=== PATIENT | female | born 1955 | race Caucasian/White ===

== ENCOUNTER 2017-07-28 19:52 | Inpatient (IN) | payer OTHER ==
[~2017-07-28] VITALS: Ht 157.5 cm; Wt 59.0 kg
[~2017-07-28 19:52] MED LIST: ADV250/50 INH; AMLODIPINE BESYL5 M1 PO; ASPIR LOW81 MG PO; AZITHROMYCIN250 M1 PO; BENADRYL ALLERG25 MG PO; BP MEDICATION; CLA10 PO; DIPHENHYDRAMINE50 M2 PO; HYDROCHLOROTH12.5 M2 PO; KEFLEX500 MG PO; LAC PO; LIPITOR20 MG PO; MEDDP PO; METFORMIN HCL500 MG PO; NOR10T PO; NOR5 PO; PRE20 PO; PREDNISONE1 MG PO; PROAIR HFA0.09 MG/A1 IH; PROAIR INH; PROS INH; PROVENTIL0.09 MG/A1; QVAR0.08 MG/Ac IH; SIMVASTATIN1 POW; SINGULAIR10 MG PO; VENTOLIN H0.09 MG/A1 INH; VIC PO; ZIT250 PO; ZITHROMAX250 MG PO
[2017-07-28 21:26] LABS: RED CELL DISTRIBUTION WIDTH 13.5 % (11.5-14.5)
[2017-07-28 21:30] LABS: BASOPHIL % 0.6 % (0-2)
[2017-07-28 21:32] LABS: PLATELET COUNT 408 x10^3mcL (130-400)
[2017-07-28 21:40] LABS: CALCIUM 9.3 mg/dL (8.5-10.1); CARBON DIOXIDE 34.3 mmol/L (21-32); CHLORIDE SERUM 95 mmol/L (98-107); CREATININE SERUM 0.6 mg/dL (0.6-1.0); GFR1 > 60 mL/min; GLUCOSE SERUM 99 mg/dL (74-106); POTASSIUM SERUM 3.8 mmol/L (3.5-5.1); SODIUM SERUM 131 mmol/L (136-145)
[2017-07-28 21:43] LABS: ALBUMIN 3.7 g/dL (3.4-5.0); ALKALINE PHOSPHATASE 100 U/L (46-116); ALT/SGPT 25 U/L (14-59); AST/SGOT 14 U/L (15-37); BILIRUBIN TOTAL 0.51 mg/dL (0.20-1.00); MAGNESIUM 2.2 mg/dL (1.8-2.4); TOTAL PROTEIN, SERUM 7.5 g/dL (6.4-8.2)
[2017-07-28 22:40] LABS: CK-MB 1.7 ng/mL (0-3.6)
[2017-07-29] VITALS (7 sets, daily range): BP systolic 125–140; BP diastolic 54–67
[2017-07-29 00:42] LABS: microscopic required? NO
[2017-07-29 01:01] LABS: UA SPECIFIC GRAVITY 1.015 (1.005-1.035); urine erythrocyte NEGATIVE (NEGATIVE)
[2017-07-29 01:04] LABS: T3 TOTAL 0.92 ng/mL
[2017-07-29 01:15] LABS: AMPHETAMINE QUAL UR NONE DETECTED (NEG <=1000)
[2017-07-29 01:52] LABS: FREE T4 1.18 ng/dL (0.76-1.46); FREE THYROXINE INDEX 3.7 ug/dL (1.4-4.5); T4(THYROXINE) 10.2 ug/dL (4.7-13.3)
[2017-07-29 04:34] LABS: BASOPHIL % 0.1 % (0-2); PLATELET COUNT 358 x10^3mcL (130-400); RED CELL DISTRIBUTION WIDTH 13.6 % (11.5-14.5)
[2017-07-29 04:43] LABS: CALCIUM 8.9 mg/dL (8.5-10.1); CHLORIDE SERUM 96 mmol/L (98-107); CREATININE SERUM 0.7 mg/dL (0.6-1.0); GFR1 > 60 mL/min; GLUCOSE SERUM 165 mg/dL (74-106); POTASSIUM SERUM 3.9 mmol/L (3.5-5.1); SODIUM SERUM 135 mmol/L (136-145)
[2017-07-30 06:24] VITALS: BP 148/66
[2017-07-30 07:15] LABS: BASOPHIL % 0.1 % (0-2); PLATELET COUNT 348 x10^3mcL (130-400); RED CELL DISTRIBUTION WIDTH 13.6 % (11.5-14.5)
[2017-07-30 07:28] LABS: CALCIUM 8.7 mg/dL (8.5-10.1); CARBON DIOXIDE 30.7 mmol/L (21-32); CHLORIDE SERUM 98 mmol/L (98-107); CREATININE SERUM 0.6 mg/dL (0.6-1.0); GFR1 > 60 mL/min; GLUCOSE SERUM 180 mg/dL (74-106); POTASSIUM SERUM 4.4 mmol/L (3.5-5.1); SODIUM SERUM 135 mmol/L (136-145)
[2017-07-30 09:30] VITALS: BP 139/57
[2017-07-30 13:13] VITALS: BP 146/66
[2017-07-30] MEDS ORDERED: ZITHROMAX250 MG PO (16:03)
[2017-07-30] MEDS ORDERED: LAC PO (16:16)
[2017-07-30] MEDS ORDERED: MEDDP PO ×2 (16:16→16:51)
[2017-07-30] MEDS ORDERED: ALBUTEROL SULFAT3 M3 IH (16:16)
[2017-07-30 16:32] VITALS: BP 146/66
[2017-07-30 16:38] VITALS: BP 143/65
[2017-07-30] MEDS ORDERED: ZITHROMAX1 GM/Packe PO (16:53)
== END 2017-07-30 18:32 | disposition home or self-care (01) | DRG 140 ==
LOC: ED 19:52 → DU 23:50
PROVIDERS: Emergency Medicine; ADMIT Family Medicine
DX: J44.1 Chronic obstructive pulmonary disease with (acute) exacerbation (principal); D68.69 Other thrombophilia; R65.10 Systemic inflammatory response syndrome (SIRS) of non-infectious origin without acute organ dysfunction; E11.65 Type 2 diabetes mellitus with hyperglycemia; Z99.81 Dependence on supplemental oxygen; I10 Essential (primary) hypertension; Z79.82 Long term (current) use of aspirin; M54.40 Lumbago with sciatica, unspecified side; L57.0 Actinic keratosis; Z68.23 Body mass index [BMI] 23.0-23.9, adult; Z79.84 Long term (current) use of oral hypoglycemic drugs; Z86.718 Personal history of other venous thrombosis and embolism; Z88.0 Allergy status to penicillin; Z88.2 Allergy status to sulfonamides; Z88.8 Allergy status to other drugs, medicaments and biological substances
CPT/HCPCS: 36600; 82962; 83880; 84439; 85378; J0696; J1644; J2270; J2920; J2930; J3475; J3490; J7030; J7613; J7620; J7644; Q0092

== ENCOUNTER 2017-10-27 17:14 | Inpatient (IN) | payer OTHER ==
[~2017-10-27] VITALS: Ht 160 cm; Wt 60.5 kg
[~2017-10-27 17:14] MED LIST changes: +ALBUTEROL SULFAT3 M3 IH; +ZITHROMAX1 GM/Packe PO
[2017-10-27 17:16] VITALS: Ht 160 cm; Wt 60.5 kg
[2017-10-27 19:10] LABS: BASOPHIL % 0.7 % (0-2); PLATELET COUNT 451 x10^3mcL (130-400); RED CELL DISTRIBUTION WIDTH 13.1 % (11.5-14.5)
[2017-10-27 19:13] LABS: CALCIUM 9.1 mg/dL (8.5-10.1); CARBON DIOXIDE 30.9 mmol/L (21-32); CHLORIDE SERUM 91 mmol/L (98-107); CREATININE SERUM 0.5 mg/dL (0.6-1.0); GFR1 > 60 mL/min; GLUCOSE SERUM 100 mg/dL (74-106); POTASSIUM SERUM 3.8 mmol/L (3.5-5.1); SODIUM SERUM 129 mmol/L (136-145)
[2017-10-27 19:19] LABS: ALBUMIN 3.5 g/dL (3.4-5.0); ALKALINE PHOSPHATASE 86 U/L (46-116); ALT/SGPT 27 U/L (14-59); AST/SGOT 16 U/L (15-37); BILIRUBIN TOTAL 0.53 mg/dL (0.20-1.00); TOTAL PROTEIN, SERUM 6.8 g/dL (6.4-8.2)
[2017-10-27 19:59] LABS: T3 TOTAL 1.05 ng/mL
[2017-10-27 20:01] LABS: CHOLESTEROL/HDL RATIO 3.2; PHOSPHOROUS 3.7 mg/dL (2.5-4.9)
[2017-10-27 20:05] LABS: FREE T4 1.15 ng/dL (0.76-1.46); FREE THYROXINE INDEX 3.1 ug/dL (1.4-4.5)
[2017-10-27 20:33] VITALS: BP 111/61
[2017-10-27 21:25] VITALS: BP 111/62
[2017-10-28 01:00] LABS: OSMOLALITY SERUM 283 mOsm/kg (278-298)
[2017-10-28 01:04] LABS: CALCIUM 8.5 mg/dL (8.5-10.1); CARBON DIOXIDE 31.8 mmol/L (21-32); CHLORIDE SERUM 93 mmol/L (98-107); CREATININE SERUM 0.7 mg/dL (0.6-1.0); GFR1 > 60 mL/min; GLUCOSE SERUM 275 mg/dL (74-106); POTASSIUM SERUM 4.2 mmol/L (3.5-5.1); SODIUM SERUM 132 mmol/L (136-145)
[2017-10-28 02:16] LABS: microscopic required? YES; urine erythrocyte NEGATIVE (NEGATIVE)
[2017-10-28 02:24] LABS: AMPHETAMINE QUAL UR NONE DETECTED (NEG <=1000)
[2017-10-28 05:47] VITALS: BP 123/68
[2017-10-28 07:21] LABS: BASOPHIL % 0.2 % (0-2); RED CELL DISTRIBUTION WIDTH 13.1 % (11.5-14.5)
[2017-10-28 07:25] LABS: PLATELET COUNT 417 x10^3mcL (130-400)
[2017-10-28 07:57] LABS: CALCIUM 8.7 mg/dL (8.5-10.1); CARBON DIOXIDE 27.2 mmol/L (21-32); CHLORIDE SERUM 94 mmol/L (98-107); CREATININE SERUM 0.5 mg/dL (0.6-1.0); GFR1 > 60 mL/min; GLUCOSE SERUM 193 mg/dL (74-106); PHOSPHOROUS 3.6 mg/dL (2.5-4.9); POTASSIUM SERUM 4.5 mmol/L (3.5-5.1); SODIUM SERUM 129 mmol/L (136-145)
[2017-10-28 09:42] VITALS: BP 154/68
[2017-10-28 14:53] VITALS: BP 114/43
[2017-10-28 16:40] VITALS: BP 113/53
[2017-10-28 21:02] LABS: CALCIUM 8.9 mg/dL (8.5-10.1); CARBON DIOXIDE 31.1 mmol/L (21-32); CHLORIDE SERUM 95 mmol/L (98-107); CREATININE SERUM 0.7 mg/dL (0.6-1.0); GFR1 > 60 mL/min; GLUCOSE SERUM 218 mg/dL (74-106); POTASSIUM SERUM 4.5 mmol/L (3.5-5.1); SODIUM SERUM 132 mmol/L (136-145)
[2017-10-28 22:08] VITALS: BP 112/48
[2017-10-29 05:57] VITALS: BP 115/42
[2017-10-29 10:15] VITALS: BP 127/52
[2017-10-29 10:53] VITALS: BP 127/52
[2017-10-29] MEDS ORDERED: ZITHROMAX1 GM/Packe PO (15:43)
[2017-10-29] MEDS ORDERED: MEDDP PO (15:44)
[2017-10-29] MEDS ORDERED: NOR10T PO (15:51)
[2017-10-29 16:03] LABS: CHLORIDE SERUM 96 mmol/L (98-107); CREATININE SERUM 0.8 mg/dL (0.6-1.0); GFR1 > 60 mL/min; GLUCOSE SERUM 167 mg/dL (74-106); PHOSPHOROUS 2.5 mg/dL (2.5-4.9); POTASSIUM SERUM 4.3 mmol/L (3.5-5.1); SODIUM SERUM 133 mmol/L (136-145)
[2017-10-29 16:16] LABS: RED CELL DISTRIBUTION WIDTH 13.3 % (11.5-14.5)
[2017-10-29 16:20] LABS: PLATELET COUNT 405 x10^3mcL (130-400)
[2017-10-29 16:53] LABS: BAND NEUTROPHIL 1 % (0-10); BASOPHIL 0 % (0-2); MONOCYTE 4 % (0-7); SEGMENTED NEUTROPHILS 88 % (37-75)
[2017-10-29 16:57] LABS: PLATELET MORPHOLOGY PLATELETS INCREASED; rbc morphology (normal/abnorm) NORMAL (NORMAL)
== END 2017-10-29 17:22 | disposition home or self-care (01) | DRG 140 ==
LOC: ED 17:14 → DU 18:55
PROVIDERS: Emergency Medicine; Family Medicine
DX: J44.1 Chronic obstructive pulmonary disease with (acute) exacerbation (principal); N17.0 Acute kidney failure with tubular necrosis; D68.69 Other thrombophilia; E11.51 Type 2 diabetes mellitus with diabetic peripheral angiopathy without gangrene; R65.10 Systemic inflammatory response syndrome (SIRS) of non-infectious origin without acute organ dysfunction; E87.1 Hypo-osmolality and hyponatremia; E87.8 Other disorders of electrolyte and fluid balance, not elsewhere classified; Z99.81 Dependence on supplemental oxygen; I10 Essential (primary) hypertension; E78.5 Hyperlipidemia, unspecified; I25.2 Old myocardial infarction; Z79.82 Long term (current) use of aspirin; Z87.891 Personal history of nicotine dependence; Z79.84 Long term (current) use of oral hypoglycemic drugs; Z88.0 Allergy status to penicillin; Z88.2 Allergy status to sulfonamides; Z88.8 Allergy status to other drugs, medicaments and biological substances; Z98.51 Tubal ligation status; G89.29 Other chronic pain; M54.9 Dorsalgia, unspecified; Z82.49 Family history of ischemic heart disease and other diseases of the circulatory system; Z80.9 Family history of malignant neoplasm, unspecified
CPT/HCPCS: 36600; 82962; 83880; 84439; 87804; 94150; J0456; J0696; J2920; J2930; J3490; J7030; J7050; J7620; Q0092

== ENCOUNTER 2018-01-30 17:51 | Inpatient (IN) | payer OTHER ==
[~2018-01-30] VITALS: Ht 160 cm; Wt 63.1 kg
[2018-01-30 18:11] VITALS: Ht 160 cm; Wt 63.1 kg
[2018-01-30 19:07] LABS: BASOPHIL % 0.7 % (0-2); PLATELET COUNT 363 x10^3mcL (130-400); RED CELL DISTRIBUTION WIDTH 13.2 % (11.5-14.5)
[2018-01-30 19:19] LABS: ALBUMIN 3.7 g/dL (3.4-5.0); ALKALINE PHOSPHATASE 96 U/L (46-116); ALT/SGPT 18 U/L (14-59); AST/SGOT 12 U/L (15-37); BILIRUBIN TOTAL 0.7 mg/dL (0.20-1.00); CALCIUM 8.5 mg/dL (8.5-10.1); CARBON DIOXIDE 34.2 mmol/L (21-32); CHLORIDE SERUM 89 mmol/L (98-107); CREATININE SERUM 0.4 mg/dL (0.6-1.0); GFR1 > 60 mL/min; GLUCOSE SERUM 119 mg/dL (74-106); POTASSIUM SERUM 3.2 mmol/L (3.5-5.1); TOTAL PROTEIN, SERUM 6.7 g/dL (6.4-8.2)
[2018-01-30 19:25] LABS: SODIUM SERUM 124 mmol/L (136-145)
[2018-01-30 20:28] VITALS: BP 156/64
[2018-01-30 20:56] VITALS: BP 156/64
[2018-01-30 20:58] LABS: T3 TOTAL 1.05 ng/mL
[2018-01-30 21:00] LABS: MAGNESIUM 1.9 mg/dL (1.8-2.4); PHOSPHOROUS 3.7 mg/dL (2.5-4.9)
[2018-01-30 21:01] LABS: CHOLESTEROL/HDL RATIO 2.5
[2018-01-30 21:07] LABS: FREE T4 1.46 ng/dL (0.76-1.46); FREE THYROXINE INDEX 3.9 ug/dL (1.4-4.5); T4(THYROXINE) 10.7 ug/dL (4.7-13.3)
[2018-01-31 03:08] LABS: microscopic required? YES; urine erythrocyte NEGATIVE (NEGATIVE)
[2018-01-31 03:17] LABS: AMPHETAMINE QUAL UR NONE DETECTED (NEG <=1000)
[2018-01-31 05:51] VITALS: BP 121/55
[2018-01-31 08:07] LABS: BASOPHIL % 0.4 % (0-2); PLATELET COUNT 354 x10^3mcL (130-400); RED CELL DISTRIBUTION WIDTH 13.5 % (11.5-14.5)
[2018-01-31 08:21] LABS: CALCIUM 9.3 mg/dL (8.5-10.1); CARBON DIOXIDE 30.6 mmol/L (21-32); CHLORIDE SERUM 89 mmol/L (98-107); CREATININE SERUM 0.6 mg/dL (0.6-1.0); GFR1 > 60 mL/min; GLUCOSE SERUM 128 mg/dL (74-106); MAGNESIUM 1.9 mg/dL (1.8-2.4); PHOSPHOROUS 3.5 mg/dL (2.5-4.9); POTASSIUM SERUM 4.7 mmol/L (3.5-5.1); SODIUM SERUM 129 mmol/L (136-145)
[2018-01-31 09:07] VITALS: BP 131/62
[2018-01-31 13:51] VITALS: BP 127/66
[2018-01-31 17:07] VITALS: BP 139/62
[2018-01-31 19:25] VITALS: BP 125/42
[2018-01-31 21:31] VITALS: BP 124/50
[2018-02-01 06:15] LABS: PLATELET COUNT 373 x10^3mcL (130-400); RED CELL DISTRIBUTION WIDTH 13.8 % (11.5-14.5)
[2018-02-01 06:18] VITALS: BP 149/71
[2018-02-01] MEDS ORDERED: LISINOPRIL10 MG PO (06:23)
[2018-02-01] MEDS ORDERED: KEFLEX500 M1 PO (06:24)
[2018-02-01] MEDS ORDERED: MEDDP PO (06:25)
[2018-02-01] MEDS ORDERED: LAC PO (06:25)
[2018-02-01 06:45] LABS: CALCIUM 8.6 mg/dL (8.5-10.1); CARBON DIOXIDE 29.5 mmol/L (21-32); CHLORIDE SERUM 96 mmol/L (98-107); CREATININE SERUM 0.5 mg/dL (0.6-1.0); GFR1 > 60 mL/min; GLUCOSE SERUM 146 mg/dL (74-106); PHOSPHOROUS 3.1 mg/dL (2.5-4.9); POTASSIUM SERUM 4.5 mmol/L (3.5-5.1); SODIUM SERUM 134 mmol/L (136-145)
[2018-02-01] MEDS ORDERED: BLOOD GLUCOSE MC (08:00)
[2018-02-01 09:10] LABS: BAND NEUTROPHIL 2 % (0-10); BASOPHIL 0 % (0-2); MONOCYTE 2 % (0-7); SEGMENTED NEUTROPHILS 92 % (37-75)
[2018-02-01 11:01] VITALS: BP 132/53
== END 2018-02-01 11:44 | disposition home or self-care (01) | DRG 140 ==
LOC: ED 17:51 → DU 19:11
PROVIDERS: Emergency Medicine; Family Medicine
DX: J44.1 Chronic obstructive pulmonary disease with (acute) exacerbation (principal); N17.0 Acute kidney failure with tubular necrosis; E87.1 Hypo-osmolality and hyponatremia; E87.8 Other disorders of electrolyte and fluid balance, not elsewhere classified; I10 Essential (primary) hypertension; E11.9 Type 2 diabetes mellitus without complications; E78.5 Hyperlipidemia, unspecified; Z79.82 Long term (current) use of aspirin; Z88.0 Allergy status to penicillin; Z88.2 Allergy status to sulfonamides; Z88.8 Allergy status to other drugs, medicaments and biological substances; Z83.3 Family history of diabetes mellitus; Z82.49 Family history of ischemic heart disease and other diseases of the circulatory system; Z82.3 Family history of stroke; Z80.9 Family history of malignant neoplasm, unspecified; F17.210 Nicotine dependence, cigarettes, uncomplicated; G89.29 Other chronic pain; M54.9 Dorsalgia, unspecified; M41.9 Scoliosis, unspecified
CPT/HCPCS: 36600; 82962; 83880; 84439; 87804; J0696; J1885; J2920; J2930; J7030; J7620; Q0092

== ENCOUNTER 2018-03-25 16:52 | Inpatient (IN) | payer OTHER ==
[~2018-03-25] VITALS: Ht 160 cm; Wt 55.4 kg
[~2018-03-25 16:52] MED LIST changes: +BLOOD GLUCOSE MC; +KEFLEX500 M1 PO; +LISINOPRIL10 MG PO
[2018-03-25 16:55] VITALS: Ht 160 cm; Wt 55.4 kg
[2018-03-25 17:54] LABS: BASOPHIL % 0.4 % (0-2); RED CELL DISTRIBUTION WIDTH 13.1 % (11.5-14.5)
[2018-03-25 17:59] LABS: PLATELET COUNT 529 x10^3mcL (130-400)
[2018-03-25 18:06] LABS: CALCIUM 9.1 mg/dL (8.5-10.1); CARBON DIOXIDE 31.7 mmol/L (21-32); CHLORIDE SERUM 88 mmol/L (98-107); CREATININE SERUM 0.6 mg/dL (0.6-1.0); GFR1 > 60 mL/min; GLUCOSE SERUM 120 mg/dL (74-106); POTASSIUM SERUM 4.3 mmol/L (3.5-5.1); SODIUM SERUM 126 mmol/L (136-145)
[2018-03-25 18:13] LABS: ALBUMIN 3.4 g/dL (3.4-5.0); ALKALINE PHOSPHATASE 118 U/L (46-116); ALT/SGPT 14 U/L (14-59); AST/SGOT 13 U/L (15-37); BILIRUBIN TOTAL 0.62 mg/dL (0.20-1.00); TOTAL PROTEIN, SERUM 7.5 g/dL (6.4-8.2)
[2018-03-25 18:30] LABS: CK-MB 0.6 ng/mL (0-3.6)
[2018-03-25 20:08] LABS: T3 TOTAL 1.15 ng/mL
[2018-03-25 20:09] LABS: CHOLESTEROL/HDL RATIO 2.9; PHOSPHOROUS 3.8 mg/dL (2.5-4.9)
[2018-03-25 20:17] VITALS: BP 125/52
[2018-03-25 20:29] LABS: FREE T4 1.39 ng/dL (0.76-1.46); FREE THYROXINE INDEX 4.1 ug/dL (1.4-4.5); T4(THYROXINE) 11.3 ug/dL (4.7-13.3)
[2018-03-25 20:48] VITALS: BP 125/52
[2018-03-25] MEDS ORDERED: ALDACTONE25 MG PO (21:44)
[2018-03-25] MEDS ORDERED: ALPRAZOLAM XR1 MG PO (21:46)
[2018-03-26 00:58] LABS: CALCIUM 8.7 mg/dL (8.5-10.1); CARBON DIOXIDE 25.7 mmol/L (21-32); CHLORIDE SERUM 87 mmol/L (98-107); CREATININE SERUM 0.9 mg/dL (0.6-1.0); GFR1 > 60 mL/min; GLUCOSE SERUM 191 mg/dL (74-106); POTASSIUM SERUM 4.4 mmol/L (3.5-5.1)
[2018-03-26 01:02] LABS: SODIUM SERUM 124 mmol/L (136-145)
[2018-03-26 06:06] VITALS: BP 117/61
[2018-03-26 06:56] LABS: RED CELL DISTRIBUTION WIDTH 13.3 % (11.5-14.5)
[2018-03-26 07:18] LABS: BASOPHIL % 0 % (0-2); PLATELET COUNT 448 x10^3mcL (130-400)
[2018-03-26 07:25] LABS: CALCIUM 8.8 mg/dL (8.5-10.1); CARBON DIOXIDE 30.8 mmol/L (21-32); CHLORIDE SERUM 88 mmol/L (98-107); CREATININE SERUM 0.6 mg/dL (0.6-1.0); GFR1 > 60 mL/min; GLUCOSE SERUM 131 mg/dL (74-106); POTASSIUM SERUM 5.4 mmol/L (3.5-5.1); SODIUM SERUM 126 mmol/L (136-145)
[2018-03-26 08:43] VITALS: BP 122/53
[2018-03-26 09:44] LABS: microscopic required? NO
[2018-03-26 10:07] LABS: UA SPECIFIC GRAVITY 1.015 (1.005-1.035); urine erythrocyte NEGATIVE (NEGATIVE)
[2018-03-26 10:20] LABS: AMPHETAMINE QUAL UR NONE DETECTED (NEG <=1000)
[2018-03-26 12:34] VITALS: BP 134/60
[2018-03-26 13:36] LABS: CALCIUM 8.5 mg/dL (8.5-10.1); CARBON DIOXIDE 33.5 mmol/L (21-32); CHLORIDE SERUM 88 mmol/L (98-107); CREATININE SERUM 0.7 mg/dL (0.6-1.0); GFR1 > 60 mL/min; GLUCOSE SERUM 219 mg/dL (74-106); POTASSIUM SERUM 5.5 mmol/L (3.5-5.1); SODIUM SERUM 125 mmol/L (136-145)
[2018-03-26 16:24] LABS: CALCIUM 8.7 mg/dL (8.5-10.1); CHLORIDE SERUM 89 mmol/L (98-107); CREATININE SERUM 0.7 mg/dL (0.6-1.0); GFR1 > 60 mL/min; GLUCOSE SERUM 176 mg/dL (74-106); POTASSIUM SERUM 4.5 mmol/L (3.5-5.1); SODIUM SERUM 129 mmol/L (136-145)
[2018-03-26 17:14] VITALS: BP 128/57
[2018-03-26 20:10] LABS: CALCIUM 8.5 mg/dL (8.5-10.1); CARBON DIOXIDE 34.7 mmol/L (21-32); CHLORIDE SERUM 89 mmol/L (98-107); CREATININE SERUM 0.8 mg/dL (0.6-1.0); GFR1 > 60 mL/min; GLUCOSE SERUM 178 mg/dL (74-106); POTASSIUM SERUM 4.6 mmol/L (3.5-5.1); SODIUM SERUM 128 mmol/L (136-145)
[2018-03-26 20:19] VITALS: BP 109/57
[2018-03-27 05:20] VITALS: BP 124/67
[2018-03-27 05:41] LABS: RED CELL DISTRIBUTION WIDTH 13.2 % (11.5-14.5)
[2018-03-27 05:43] LABS: BASOPHIL % 0 % (0-2); PLATELET COUNT 493 x10^3mcL (130-400)
[2018-03-27 06:03] LABS: CALCIUM 8.7 mg/dL (8.5-10.1); CARBON DIOXIDE 36.5 mmol/L (21-32); CHLORIDE SERUM 95 mmol/L (98-107); CREATININE SERUM 0.5 mg/dL (0.6-1.0); GFR1 > 60 mL/min; GLUCOSE SERUM 137 mg/dL (74-106); PHOSPHOROUS 2.5 mg/dL (2.5-4.9); SODIUM SERUM 132 mmol/L (136-145)
[2018-03-27 08:18] VITALS: BP 139/54
[2018-03-27 09:22] LABS: CALCIUM 9.2 mg/dL (8.5-10.1); CARBON DIOXIDE 35.6 mmol/L (21-32); CHLORIDE SERUM 95 mmol/L (98-107); CREATININE SERUM 0.6 mg/dL (0.6-1.0); GFR1 > 60 mL/min; GLUCOSE SERUM 189 mg/dL (74-106); POTASSIUM SERUM 4.9 mmol/L (3.5-5.1); SODIUM SERUM 134 mmol/L (136-145)
[2018-03-27] MEDS ORDERED: MUCINEX600 MG PO (11:03)
[2018-03-27] MEDS ORDERED: MEDDP PO (11:04)
[2018-03-27] MEDS ORDERED: LAC PO (11:04)
[2018-03-27] MEDS ORDERED: ZIT250 PO (11:08)
[2018-03-27 11:11] VITALS: BP 139/54
== END 2018-03-27 14:16 | disposition home or self-care (01) | DRG 720 ==
LOC: ED 16:52 → DU 19:11
PROVIDERS: Emergency Medicine; Student in an Organized Health Care Education/Training Program
DX: A41.9 Sepsis, unspecified organism (principal); J96.21 Acute and chronic respiratory failure with hypoxia; N17.0 Acute kidney failure with tubular necrosis; I50.43 Acute on chronic combined systolic (congestive) and diastolic (congestive) heart failure; I11.0 Hypertensive heart disease with heart failure; J18.9 Pneumonia, unspecified organism; E87.8 Other disorders of electrolyte and fluid balance, not elsewhere classified; E11.65 Type 2 diabetes mellitus with hyperglycemia; D64.9 Anemia, unspecified; J44.1 Chronic obstructive pulmonary disease with (acute) exacerbation; E87.1 Hypo-osmolality and hyponatremia; G89.29 Other chronic pain; Z53.29 Procedure and treatment not carried out because of patient's decision for other reasons; E87.5 Hyperkalemia; Z60.2 Problems related to living alone; Z88.1 Allergy status to other antibiotic agents; Z88.2 Allergy status to sulfonamides; Z88.0 Allergy status to penicillin; Z90.89 Acquired absence of other organs; Z98.51 Tubal ligation status; M54.9 Dorsalgia, unspecified; J44.0 Chronic obstructive pulmonary disease with (acute) lower respiratory infection; Z80.9 Family history of malignant neoplasm, unspecified; Z82.49 Family history of ischemic heart disease and other diseases of the circulatory system; Z82.3 Family history of stroke; Z83.3 Family history of diabetes mellitus; F17.210 Nicotine dependence, cigarettes, uncomplicated; E66.9 Obesity, unspecified; T38.0X5A Adverse effect of glucocorticoids and synthetic analogues, initial encounter; Y92.89 Other specified places as the place of occurrence of the external cause; E86.0 Dehydration; E02 Subclinical iodine-deficiency hypothyroidism
CPT/HCPCS: 82962; 83880; 84439; 94150; J0456; J0696; J1940; J2920; J2930; J7030; J7060; J7613; J7620; J7644; Q0092

== ENCOUNTER 2018-05-15 14:02 | Inpatient (IN) | payer OTHER ==
[~2018-05-15] VITALS: Ht 160 cm; Wt 64.4 kg
[~2018-05-15 14:02] MED LIST changes: +ALDACTONE25 MG PO; +ALPRAZOLAM XR1 MG PO; -AMLODIPINE BESYL5 M1 PO; +MUCINEX600 MG PO
[2018-05-15 14:08] VITALS: Ht 160 cm; Wt 64.4 kg
[2018-05-15 14:39] LABS: microscopic required? NO
[2018-05-15 14:44] LABS: BASOPHIL % 0.9 % (0-2); PLATELET COUNT 380 x10^3mcL (130-400); RED CELL DISTRIBUTION WIDTH 13.6 % (11.5-14.5)
[2018-05-15 15:00] LABS: CARBON DIOXIDE 27.8 mmol/L (21-32); CHLORIDE SERUM 92 mmol/L (98-107); CREATININE SERUM 0.6 mg/dL (0.6-1.0); GFR1 > 60 mL/min; GLUCOSE SERUM 100 mg/dL (74-106); SODIUM SERUM 127 mmol/L (136-145)
[2018-05-15 15:12] LABS: ALBUMIN 3.5 g/dL (3.4-5.0); ALKALINE PHOSPHATASE 86 U/L (46-116); ALT/SGPT 19 U/L (14-59); AMYLASE 41 U/L (25-115); AST/SGOT 18 U/L (15-37); CHOLESTEROL 118 mg/dL (<200); HDL CHOLESTEROL 45 mg/dL (40-60); LIPASE 186 IU/L (73-393); T4(THYROXINE) 9.1 ug/dL (4.7-13.3); TOTAL PROTEIN, SERUM 6.6 g/dL (6.4-8.2)
[2018-05-15 16:32] LABS: T3 TOTAL 0.94 ng/mL
[2018-05-15 16:46] LABS: urine erythrocyte NEGATIVE (NEGATIVE)
[2018-05-15 16:48] LABS: MAGNESIUM 1.7 mg/dL (1.8-2.4); PHOSPHOROUS 2.6 mg/dL (2.5-4.9)
[2018-05-15 16:49] LABS: CHOLESTEROL/HDL RATIO 2.8
[2018-05-15 16:56] LABS: AMPHETAMINE QUAL UR NONE DETECTED (See below)
[2018-05-15 16:58] LABS: FREE T4 1.3 ng/dL (0.76-1.46); FREE THYROXINE INDEX 3.4 ug/dL (1.4-4.5); T4(THYROXINE) 9.6 ug/dL (4.7-13.3)
[2018-05-15 17:15] VITALS: BP 139/70
[2018-05-15 20:14] VITALS: BP 115/56
[2018-05-16 01:00] VITALS: BP 115/56
[2018-05-16 05:14] VITALS: BP 124/55
[2018-05-16 07:16] LABS: BASOPHIL % 0.2 % (0-2); PLATELET COUNT 319 x10^3mcL (130-400); RED CELL DISTRIBUTION WIDTH 13.9 % (11.5-14.5)
[2018-05-16 07:34] LABS: AMYLASE 48 U/L (25-115); CALCIUM 8.8 mg/dL (8.5-10.1); CARBON DIOXIDE 27.6 mmol/L (21-32); CHLORIDE SERUM 98 mmol/L (98-107); CREATININE SERUM 0.6 mg/dL (0.6-1.0); GFR1 > 60 mL/min; GLUCOSE SERUM 120 mg/dL (74-106); MAGNESIUM 1.8 mg/dL (1.8-2.4); PHOSPHOROUS 3.3 mg/dL (2.5-4.9); SODIUM SERUM 131 mmol/L (136-145)
[2018-05-16 09:51] VITALS: BP 138/62
[2018-05-16 13:13] VITALS: BP 128/83
[2018-05-16 17:09] VITALS: BP 132/61
[2018-05-16 21:10] VITALS: BP 141/60
[2018-05-17 05:52] VITALS: BP 129/57
[2018-05-17 06:55] LABS: BASOPHIL % 0.1 % (0-2); PLATELET COUNT 330 x10^3mcL (130-400); RED CELL DISTRIBUTION WIDTH 14.1 % (11.5-14.5)
[2018-05-17 07:16] LABS: CALCIUM 8.6 mg/dL (8.5-10.1); CARBON DIOXIDE 27.3 mmol/L (21-32); CHLORIDE SERUM 98 mmol/L (98-107); CREATININE SERUM 0.5 mg/dL (0.6-1.0); GFR1 > 60 mL/min; GLUCOSE SERUM 127 mg/dL (74-106); POTASSIUM SERUM 4.4 mmol/L (3.5-5.1); SODIUM SERUM 131 mmol/L (136-145)
[2018-05-17 08:11] VITALS: BP 145/69
[2018-05-17] MEDS ORDERED: NICODERM C21 MG/241 TOP (08:22)
[2018-05-17] MEDS ORDERED: PREDNISONE50 MG PO (08:23)
[2018-05-17] MEDS ORDERED: NOR10T PO (08:24)
[2018-05-17 10:50] VITALS: BP 145/69
[2018-05-17 12:30] VITALS: BP 128/65
== END 2018-05-17 13:30 | disposition home or self-care (01) | DRG 140 ==
LOC: ED 14:02 → DU 15:38
PROVIDERS: Emergency Medicine; Family Medicine; Internal Medicine
DX: J44.1 Chronic obstructive pulmonary disease with (acute) exacerbation (principal); N17.0 Acute kidney failure with tubular necrosis; J96.01 Acute respiratory failure with hypoxia; E83.42 Hypomagnesemia; E87.1 Hypo-osmolality and hyponatremia; E11.9 Type 2 diabetes mellitus without complications; D72.829 Elevated white blood cell count, unspecified; Z99.81 Dependence on supplemental oxygen; I10 Essential (primary) hypertension; I25.2 Old myocardial infarction; J20.9 Acute bronchitis, unspecified; G89.29 Other chronic pain; M54.9 Dorsalgia, unspecified; F17.210 Nicotine dependence, cigarettes, uncomplicated; Z68.25 Body mass index [BMI] 25.0-25.9, adult; Z86.718 Personal history of other venous thrombosis and embolism; Z79.84 Long term (current) use of oral hypoglycemic drugs; Z79.899 Other long term (current) drug therapy; Z88.0 Allergy status to penicillin; Z88.2 Allergy status to sulfonamides; Z88.1 Allergy status to other antibiotic agents; Z88.8 Allergy status to other drugs, medicaments and biological substances; Z82.49 Family history of ischemic heart disease and other diseases of the circulatory system; Z82.3 Family history of stroke; Z82.61 Family history of arthritis; Z83.3 Family history of diabetes mellitus; Z80.9 Family history of malignant neoplasm, unspecified; Z56.0 Unemployment, unspecified; Z98.51 Tubal ligation status
CPT/HCPCS: 36600; 83880; 84439; J0456; J1644; J1885; J1956; J2405; J2930; J3475; J7030; J7613; J7620; J7626; J7644; Q0092

== ENCOUNTER 2018-07-17 17:07 | Inpatient (IN) | payer OTHER ==
[~2018-07-17] VITALS: Ht 160 cm; Wt 56.2 kg
[~2018-07-17 17:07] MED LIST changes: +NICODERM C21 MG/241 TOP; +PREDNISONE50 MG PO
[2018-07-17 17:51] LABS: BASOPHIL % 1.9 % (0-2); CALCIUM 9.4 mg/dL (8.5-10.1); CARBON DIOXIDE 32.3 mmol/L (21-32); CHLORIDE SERUM 94 mmol/L (98-107); CREATININE SERUM 0.5 mg/dL (0.6-1.0); GFR1 > 60 mL/min; GLUCOSE SERUM 96 mg/dL (74-106); POTASSIUM SERUM 4.2 mmol/L (3.5-5.1); RED CELL DISTRIBUTION WIDTH 13.9 % (11.5-14.5); SODIUM SERUM 132 mmol/L (136-145)
[2018-07-17 17:55] LABS: ALBUMIN 3.8 g/dL (3.4-5.0); ALKALINE PHOSPHATASE 94 U/L (46-116); ALT/SGPT 17 U/L (14-59); AST/SGOT 8 U/L (15-37); BILIRUBIN TOTAL 0.49 mg/dL (0.20-1.00); TOTAL PROTEIN, SERUM 7.3 g/dL (6.4-8.2)
[2018-07-17 17:57] LABS: PLATELET COUNT 445 x10^3mcL (130-400)
[2018-07-17 19:52] VITALS: BP 162/95
[2018-07-17 19:59] VITALS: Ht 160 cm; Wt 56.2 kg
[2018-07-17 21:07] VITALS: BP 148/63
[2018-07-17 21:30] VITALS: BP 148/63
[2018-07-18 04:48] VITALS: BP 131/66
[2018-07-18 06:06] LABS: BASOPHIL % 0.2 % (0-2); PLATELET COUNT 400 x10^3mcL (130-400); RED CELL DISTRIBUTION WIDTH 13.7 % (11.5-14.5)
[2018-07-18 06:22] LABS: CALCIUM 9.1 mg/dL (8.5-10.1); CARBON DIOXIDE 32.7 mmol/L (21-32); CHLORIDE SERUM 92 mmol/L (98-107); CREATININE SERUM 0.6 mg/dL (0.6-1.0); GFR1 > 60 mL/min; GLUCOSE SERUM 143 mg/dL (74-106); POTASSIUM SERUM 5.4 mmol/L (3.5-5.1); SODIUM SERUM 129 mmol/L (136-145)
[2018-07-18 08:58] VITALS: BP 136/52
[2018-07-18 13:00] VITALS: BP 134/62
[2018-07-18 17:03] VITALS: BP 120/57
[2018-07-18 21:22] VITALS: BP 108/46
[2018-07-19 05:48] VITALS: BP 125/50
[2018-07-19 06:46] LABS: CALCIUM 8.4 mg/dL (8.5-10.1); CARBON DIOXIDE 30.6 mmol/L (21-32); CHLORIDE SERUM 87 mmol/L (98-107); CREATININE SERUM 0.6 mg/dL (0.6-1.0); GFR1 > 60 mL/min; GLUCOSE SERUM 137 mg/dL (74-106); POTASSIUM SERUM 4.6 mmol/L (3.5-5.1); SODIUM SERUM 125 mmol/L (136-145)
[2018-07-19 07:06] LABS: BASOPHIL % 0.1 % (0-2); PLATELET COUNT 329 x10^3mcL (130-400); RED CELL DISTRIBUTION WIDTH 13.7 % (11.5-14.5)
[2018-07-19 09:33] VITALS: BP 115/44
[2018-07-19 11:50] VITALS: BP 115/44
== END 2018-07-19 13:05 | disposition home or self-care (01) | DRG 140 ==
LOC: ED 17:07 → DU 18:52
PROVIDERS: Emergency Medicine; Internal Medicine
DX: J44.1 Chronic obstructive pulmonary disease with (acute) exacerbation (principal); J96.21 Acute and chronic respiratory failure with hypoxia; J69.0 Pneumonitis due to inhalation of food and vomit; I50.9 Heart failure, unspecified; I11.0 Hypertensive heart disease with heart failure; Z99.81 Dependence on supplemental oxygen; J96.22 Acute and chronic respiratory failure with hypercapnia; E11.9 Type 2 diabetes mellitus without complications; M54.42 Lumbago with sciatica, left side; M19.90 Unspecified osteoarthritis, unspecified site; F17.210 Nicotine dependence, cigarettes, uncomplicated; Z68.22 Body mass index [BMI] 22.0-22.9, adult; Z79.84 Long term (current) use of oral hypoglycemic drugs; Z88.0 Allergy status to penicillin; Z88.2 Allergy status to sulfonamides; Z88.8 Allergy status to other drugs, medicaments and biological substances; G89.29 Other chronic pain; Z98.51 Tubal ligation status; Z82.49 Family history of ischemic heart disease and other diseases of the circulatory system; Z82.3 Family history of stroke; Z80.9 Family history of malignant neoplasm, unspecified; E22.2 Syndrome of inappropriate secretion of antidiuretic hormone
CPT/HCPCS: 36600; 82962; 83880; J0456; J0780; J1644; J2920; J2930; J3010; J7040; J7620; Q0092

== ENCOUNTER 2018-09-15 20:12 | Inpatient (IN) | payer OTHER ==
[~2018-09-15] VITALS: Ht 160 cm; Wt 58.5 kg
[2018-09-15 20:15] VITALS: Ht 160 cm; Wt 58.5 kg
[2018-09-15 21:10] LABS: BASOPHIL % 1.7 % (0-2); PLATELET COUNT 454 x10^3mcL (130-400); RED CELL DISTRIBUTION WIDTH 12.7 % (11.5-14.5)
[2018-09-15 21:31] LABS: ALBUMIN 3.9 g/dL (3.4-5.0); ALKALINE PHOSPHATASE 86 U/L (46-116); ALT/SGPT 17 U/L (14-59); AST/SGOT 16 U/L (15-37); BILIRUBIN TOTAL 0.6 mg/dL (0.20-1.00); CALCIUM 9.2 mg/dL (8.5-10.1); CARBON DIOXIDE 25.4 mmol/L (21-32); CHLORIDE SERUM 87 mmol/L (98-107); CREATININE SERUM 0.9 mg/dL (0.6-1.0); GFR1 > 60 mL/min; GLUCOSE SERUM 112 mg/dL (74-106); POTASSIUM SERUM 4.2 mmol/L (3.5-5.1); TOTAL PROTEIN, SERUM 7.2 g/dL (6.4-8.2)
[2018-09-15 21:33] LABS: SODIUM SERUM 123 mmol/L (136-145)
[2018-09-15 23:31] VITALS: BP 124/64
[2018-09-16 04:46] VITALS: BP 107/53
[2018-09-16 06:17] LABS: CALCIUM 8.6 mg/dL (8.5-10.1); CARBON DIOXIDE 30.7 mmol/L (21-32); CHLORIDE SERUM 91 mmol/L (98-107); CREATININE SERUM 0.9 mg/dL (0.6-1.0); GFR1 > 60 mL/min; GLUCOSE SERUM 86 mg/dL (74-106); POTASSIUM SERUM 5.3 mmol/L (3.5-5.1); SODIUM SERUM 126 mmol/L (136-145)
[2018-09-16 07:36] LABS: BASOPHIL % 0.5 % (0-2); PLATELET COUNT 366 x10^3mcL (130-400); RED CELL DISTRIBUTION WIDTH 12.9 % (11.5-14.5)
[2018-09-16 08:56] VITALS: BP 108/56
[2018-09-16 09:27] LABS: CALCIUM 8.6 mg/dL (8.5-10.1); CARBON DIOXIDE 34.3 mmol/L (21-32); CHLORIDE SERUM 94 mmol/L (98-107); CREATININE SERUM 0.9 mg/dL (0.6-1.0); GFR1 > 60 mL/min; GLUCOSE SERUM 111 mg/dL (74-106); POTASSIUM SERUM 4.6 mmol/L (3.5-5.1); SODIUM SERUM 129 mmol/L (136-145)
[2018-09-16 10:24] LABS: OSMOLALITY SERUM 261 mOsm/kg (278-298)
[2018-09-16 11:16] VITALS: BP 120/62
[2018-09-16 11:57] LABS: CALCIUM 8.6 mg/dL (8.5-10.1); CARBON DIOXIDE 30.8 mmol/L (21-32); CHLORIDE SERUM 92 mmol/L (98-107); CREATININE SERUM 0.7 mg/dL (0.6-1.0); GFR1 > 60 mL/min; GLUCOSE SERUM 131 mg/dL (74-106); POTASSIUM SERUM 4.7 mmol/L (3.5-5.1); SODIUM SERUM 127 mmol/L (136-145)
[2018-09-16 16:29] VITALS: BP 119/60
[2018-09-16 16:54] LABS: CALCIUM 8.7 mg/dL (8.5-10.1); CARBON DIOXIDE 24.1 mmol/L (21-32); CHLORIDE SERUM 87 mmol/L (98-107); CREATININE SERUM 0.9 mg/dL (0.6-1.0); GFR1 > 60 mL/min; GLUCOSE SERUM 262 mg/dL (74-106); POTASSIUM SERUM 4.2 mmol/L (3.5-5.1)
[2018-09-16 16:59] LABS: SODIUM SERUM 122 mmol/L (136-145)
[2018-09-16 18:01] LABS: CALCIUM 8.9 mg/dL (8.5-10.1); CARBON DIOXIDE 24.8 mmol/L (21-32); CHLORIDE SERUM 88 mmol/L (98-107); CREATININE SERUM 0.9 mg/dL (0.6-1.0); GFR1 > 60 mL/min; GLUCOSE SERUM 201 mg/dL (74-106)
[2018-09-16 18:03] LABS: SODIUM SERUM 123 mmol/L (136-145)
[2018-09-16 20:56] VITALS: BP 138/79
[2018-09-16 21:20] LABS: CALCIUM 8.8 mg/dL (8.5-10.1); CARBON DIOXIDE 26.1 mmol/L (21-32); CHLORIDE SERUM 90 mmol/L (98-107); CREATININE SERUM 0.8 mg/dL (0.6-1.0); GFR1 > 60 mL/min; GLUCOSE SERUM 167 mg/dL (74-106); POTASSIUM SERUM 4.3 mmol/L (3.5-5.1)
[2018-09-16 21:21] LABS: SODIUM SERUM 124 mmol/L (136-145)
[2018-09-17 01:14] LABS: CALCIUM 9.1 mg/dL (8.5-10.1); CARBON DIOXIDE 26.4 mmol/L (21-32); CHLORIDE SERUM 91 mmol/L (98-107); CREATININE SERUM 0.7 mg/dL (0.6-1.0); GFR1 > 60 mL/min; GLUCOSE SERUM 198 mg/dL (74-106); POTASSIUM SERUM 4.7 mmol/L (3.5-5.1); SODIUM SERUM 126 mmol/L (136-145)
[2018-09-17 04:13] LABS: CALCIUM 8.6 mg/dL (8.5-10.1); CARBON DIOXIDE 30.7 mmol/L (21-32); CHLORIDE SERUM 96 mmol/L (98-107); CREATININE SERUM 0.6 mg/dL (0.6-1.0); GFR1 > 60 mL/min; GLUCOSE SERUM 171 mg/dL (74-106); POTASSIUM SERUM 4.4 mmol/L (3.5-5.1); SODIUM SERUM 130 mmol/L (136-145)
[2018-09-17 05:39] VITALS: BP 130/61
[2018-09-17 09:10] VITALS: BP 108/41
[2018-09-17 09:15] LABS: CALCIUM 8.8 mg/dL (8.5-10.1); CARBON DIOXIDE 28.4 mmol/L (21-32); CHLORIDE SERUM 96 mmol/L (98-107); CREATININE SERUM 0.6 mg/dL (0.6-1.0); GFR1 > 60 mL/min; GLUCOSE SERUM 172 mg/dL (74-106); POTASSIUM SERUM 4.7 mmol/L (3.5-5.1); SODIUM SERUM 130 mmol/L (136-145)
[2018-09-17 11:47] LABS: CALCIUM 9.1 mg/dL (8.5-10.1); CARBON DIOXIDE 29.5 mmol/L (21-32); CHLORIDE SERUM 95 mmol/L (98-107); CREATININE SERUM 0.7 mg/dL (0.6-1.0); GFR1 > 60 mL/min; GLUCOSE SERUM 107 mg/dL (74-106); SODIUM SERUM 131 mmol/L (136-145)
[2018-09-17 12:36] VITALS: BP 126/63
[2018-09-17 15:27] VITALS: BP 126/63
== END 2018-09-17 17:20 | disposition home or self-care (01) | DRG 133 ==
LOC: ED 20:12 → DU 22:40
PROVIDERS: Emergency Medicine; Internal Medicine
DX: J96.91 Respiratory failure, unspecified with hypoxia (principal); E22.2 Syndrome of inappropriate secretion of antidiuretic hormone; E83.42 Hypomagnesemia; J44.1 Chronic obstructive pulmonary disease with (acute) exacerbation; E78.5 Hyperlipidemia, unspecified; I10 Essential (primary) hypertension; F41.9 Anxiety disorder, unspecified; E11.9 Type 2 diabetes mellitus without complications; Z88.0 Allergy status to penicillin; Z88.2 Allergy status to sulfonamides; Z88.8 Allergy status to other drugs, medicaments and biological substances; Z98.51 Tubal ligation status; F17.210 Nicotine dependence, cigarettes, uncomplicated; Z91.19 Patient's noncompliance with other medical treatment and regimen; G89.29 Other chronic pain; M54.9 Dorsalgia, unspecified; Z23 Encounter for immunization
CPT/HCPCS: 82962; 90658; J1644; J1885; J2270; J2920; J3490; J7030; J7070; J7613; J7620; J7626; J7644; Q0092

== ENCOUNTER 2019-01-25 16:14 | Inpatient (IN) | payer OTHER ==
[~2019-01-25] VITALS: Ht 154.9 cm; Wt 54.9 kg
[2019-01-25 16:40] LABS: BASOPHIL % 1.1 % (0-2); PLATELET COUNT 357 x10^3mcL (130-400); RED CELL DISTRIBUTION WIDTH 13.1 % (11.5-14.5)
[2019-01-25 16:54] LABS: CALCIUM 8.7 mg/dL (8.5-10.1); CARBON DIOXIDE 32.3 mmol/L (21-32); CHLORIDE SERUM 97 mmol/L (98-107); CREATININE SERUM 0.6 mg/dL (0.6-1.0); GFR1 > 60 mL/min; GLUCOSE SERUM 136 mg/dL (74-106); POTASSIUM SERUM 3.7 mmol/L (3.5-5.1); SODIUM SERUM 136 mmol/L (136-145)
[2019-01-25 16:59] LABS: ALBUMIN 3.5 g/dL (3.4-5.0); ALKALINE PHOSPHATASE 105 U/L (46-116); ALT/SGPT 25 U/L (14-59); AST/SGOT 16 U/L (15-37); BILIRUBIN TOTAL 0.42 mg/dL (0.20-1.00); TOTAL PROTEIN, SERUM 6.5 g/dL (6.4-8.2)
[2019-01-25 18:19] LABS: MAGNESIUM 1.9 mg/dL (1.8-2.4); PHOSPHOROUS 3.7 mg/dL (2.5-4.9)
[2019-01-25 18:45] VITALS: BP 131/65
[2019-01-25 18:57] VITALS: Ht 154.9 cm; Wt 54.9 kg
[2019-01-25 21:54] VITALS: BP 115/65
[2019-01-25 23:36] LABS: CHOLESTEROL/HDL RATIO 3.4
[2019-01-25 23:41] VITALS: BP 115/65
[2019-01-26 00:45] LABS: microscopic required? NO
[2019-01-26 00:57] LABS: UA SPECIFIC GRAVITY <=1.005 (1.005-1.035); urine erythrocyte NEGATIVE (NEGATIVE)
[2019-01-26 01:10] LABS: AMPHETAMINE QUAL UR NONE DETECTED (See below)
[2019-01-26 05:46] VITALS: BP 136/69
[2019-01-26 07:25] LABS: CALCIUM 8.7 mg/dL (8.5-10.1); CARBON DIOXIDE 36.5 mmol/L (21-32); CHLORIDE SERUM 101 mmol/L (98-107); CREATININE SERUM 0.7 mg/dL (0.6-1.0); GFR1 > 60 mL/min; GLUCOSE SERUM 98 mg/dL (74-106); MAGNESIUM 1.8 mg/dL (1.8-2.4); PHOSPHOROUS 4.7 mg/dL (2.5-4.9); POTASSIUM SERUM 4.2 mmol/L (3.5-5.1); SODIUM SERUM 139 mmol/L (136-145)
[2019-01-26 07:41] LABS: BASOPHIL % 0.8 % (0-2); PLATELET COUNT 318 x10^3mcL (130-400); RED CELL DISTRIBUTION WIDTH 13.3 % (11.5-14.5)
[2019-01-26 09:47] VITALS: BP 97/64
[2019-01-26 10:46] VITALS: BP 144/65
[2019-01-26 14:08] VITALS: BP 128/61
[2019-01-26 16:05] VITALS: BP 128/61
== END 2019-01-26 17:03 | disposition home or self-care (01) | DRG 243 ==
LOC: ED 16:14 → DU 17:54
PROVIDERS: Emergency Medicine; ADMIT Internal Medicine
DX: K21.9 Gastro-esophageal reflux disease without esophagitis (principal); Z99.81 Dependence on supplemental oxygen; I11.0 Hypertensive heart disease with heart failure; I50.30 Unspecified diastolic (congestive) heart failure; M41.9 Scoliosis, unspecified; E11.9 Type 2 diabetes mellitus without complications; J44.9 Chronic obstructive pulmonary disease, unspecified; F11.10 Opioid abuse, uncomplicated; G89.29 Other chronic pain; F41.9 Anxiety disorder, unspecified; E78.5 Hyperlipidemia, unspecified; M54.9 Dorsalgia, unspecified; F17.210 Nicotine dependence, cigarettes, uncomplicated; I25.2 Old myocardial infarction; Z68.23 Body mass index [BMI] 23.0-23.9, adult; Z86.718 Personal history of other venous thrombosis and embolism; Z88.1 Allergy status to other antibiotic agents; Z88.0 Allergy status to penicillin; Z88.2 Allergy status to sulfonamides; Z88.8 Allergy status to other drugs, medicaments and biological substances; Z98.51 Tubal ligation status; Z90.89 Acquired absence of other organs; Z82.49 Family history of ischemic heart disease and other diseases of the circulatory system; Z82.3 Family history of stroke
CPT/HCPCS: 94150; 99406; J2270; J7620; J7633; Q0092

== ENCOUNTER 2019-04-03 11:57 | Inpatient (IN) | payer OTHER ==
[~2019-04-03] VITALS: Ht 154.9 cm; Wt 56.0 kg
[2019-04-03 12:15] VITALS: Ht 154.9 cm; Wt 56.0 kg
[2019-04-03 12:39] LABS: microscopic required? NO
[2019-04-03 13:11] LABS: BASOPHIL % 0.6 % (0-2); PLATELET COUNT 339 x10^3mcL (130-400); RED CELL DISTRIBUTION WIDTH 13.8 % (11.5-14.5)
[2019-04-03 13:14] LABS: UA SPECIFIC GRAVITY <=1.005 (1.005-1.035); urine erythrocyte NEGATIVE (NEGATIVE)
[2019-04-03 13:48] LABS: ALBUMIN 3.8 g/dL (3.4-5.0); ALKALINE PHOSPHATASE 98 U/L (46-116); ALT/SGPT 20 U/L (14-59); AST/SGOT 9 U/L (15-37); BILIRUBIN TOTAL 0.53 mg/dL (0.20-1.00); CALCIUM 9.5 mg/dL (8.5-10.1); CARBON DIOXIDE 31.2 mmol/L (21-32); CHLORIDE SERUM 100 mmol/L (98-107); CREATININE SERUM 0.6 mg/dL (0.6-1.0); GFR1 > 60 mL/min; GLUCOSE SERUM 95 mg/dL (74-106); POTASSIUM SERUM 3.8 mmol/L (3.5-5.1); SODIUM SERUM 139 mmol/L (136-145); TOTAL PROTEIN, SERUM 7.1 g/dL (6.4-8.2)
[2019-04-03 15:56] VITALS: BP 142/79
[2019-04-03 16:32] VITALS: BP 142/79
[2019-04-03 21:10] VITALS: BP 134/61
[2019-04-04 05:46] VITALS: BP 132/63
[2019-04-04 08:24] VITALS: BP 138/69
[2019-04-04 11:55] VITALS: BP 122/60
[2019-04-04 15:50] VITALS: BP 137/59
[2019-04-04 20:48] VITALS: BP 125/54
[2019-04-05 04:56] VITALS: BP 133/64
[2019-04-05 07:53] VITALS: BP 148/60
[2019-04-05 10:10] VITALS: BP 148/60
[2019-04-05 11:47] VITALS: BP 129/61
== END 2019-04-05 13:27 | disposition home or self-care (01) | DRG 140 ==
LOC: ED 11:57 → DU 14:15
PROVIDERS: Emergency Medicine; ADMIT Internal Medicine
DX: J44.1 Chronic obstructive pulmonary disease with (acute) exacerbation (principal); J96.21 Acute and chronic respiratory failure with hypoxia; I11.0 Hypertensive heart disease with heart failure; I50.9 Heart failure, unspecified; J96.22 Acute and chronic respiratory failure with hypercapnia; E11.9 Type 2 diabetes mellitus without complications; E78.5 Hyperlipidemia, unspecified; F41.9 Anxiety disorder, unspecified; G89.29 Other chronic pain; M54.9 Dorsalgia, unspecified; I25.10 Atherosclerotic heart disease of native coronary artery without angina pectoris; F17.210 Nicotine dependence, cigarettes, uncomplicated; J20.9 Acute bronchitis, unspecified; I25.2 Old myocardial infarction; Z68.27 Body mass index [BMI] 27.0-27.9, adult; Z79.84 Long term (current) use of oral hypoglycemic drugs; Z91.19 Patient's noncompliance with other medical treatment and regimen; Z88.0 Allergy status to penicillin; Z88.2 Allergy status to sulfonamides; Z88.1 Allergy status to other antibiotic agents; Z88.8 Allergy status to other drugs, medicaments and biological substances; Z90.89 Acquired absence of other organs; Z98.51 Tubal ligation status; Z82.49 Family history of ischemic heart disease and other diseases of the circulatory system; Z82.3 Family history of stroke; Z82.61 Family history of arthritis; Z71.6 Tobacco abuse counseling; Z79.899 Other long term (current) drug therapy
CPT/HCPCS: 82962; J1200; J1644; J2920; J2930; J7613; J7620; J7644; Q0092

== ENCOUNTER 2019-05-14 16:55 | Inpatient (IN) | payer OTHER ==
[~2019-05-14] VITALS: Ht 157.5 cm; Wt 27.4 kg
[2019-05-14 17:01] VITALS: Ht 157.5 cm; Wt 27.4 kg
--- NOTE | 2019-05-14 17:05 | NUR ---
PT BIB [facility] FOR L GROIN PAIN NO RECENT INJURY PT REPORTS PAIN GETTING WORSE WITH MOVEMENT SHOOTING DOWN L LEG. PT AAOX4 NO DISTRESS PLACED ON O2 DUE TO COPD PT ON HOME OXYGEN AT HOME AT 3L 23/05. PT GOWNED AWAITING MD WU AND ORDERS.
--- NOTE | 2019-05-14 17:45 | NUR ---
PT TO CT.
[2019-05-14 17:52] LABS: BASOPHIL % 0.4 % (0-2); PLATELET COUNT 354 x10^3mcL (130-400); RED CELL DISTRIBUTION WIDTH 14.3 % (11.5-14.5)
[2019-05-14 17:55] LABS: CALCIUM 8.9 mg/dL (8.5-10.1); CARBON DIOXIDE 31.4 mmol/L (21-32); CHLORIDE SERUM 101 mmol/L (98-107); CREATININE SERUM 0.5 mg/dL (0.6-1.0); GFR1 > 60 mL/min; GLUCOSE SERUM 108 mg/dL (74-106); POTASSIUM SERUM 3.9 mmol/L (3.5-5.1); SODIUM SERUM 140 mmol/L (136-145)
[2019-05-14 17:59] LABS: ALKALINE PHOSPHATASE 86 U/L (46-116); ALT/SGPT 26 U/L (14-59); AST/SGOT 19 U/L (15-37); BILIRUBIN TOTAL 0.4 mg/dL (0.20-1.00); LIPASE 152 IU/L (73-393); TOTAL PROTEIN, SERUM 6.3 g/dL (6.4-8.2)
[2019-05-14 18:00] LABS: ALBUMIN 3.3 g/dL (3.4-5.0)
--- NOTE | 2019-05-14 18:00 | NUR ---
PT BACK FROM CT WITH NO INCIDENT
--- NOTE | 2019-05-14 18:10 | NUR ---
URINE COLLECTED, DIPPED AND SENT TO LAB
--- NOTE | 2019-05-14 18:17 | NUR ---
PT MEDICATED PER MD ORDERS SEE EMAR. PT IN NO DISTRESS LIGHTS OFF IN ROOM FOR PTS COMFORT AND PER PTS REQUEST AWAITING FURTHER ORDERS WILL MONITOR
--- NOTE | 2019-05-14 18:31 | NUR ---
SENT URINE SAMPLE TO LAB HOWEVER PER LAB URINE COLLECTED IS NOT ENOUGH FOR URINALYSIS ORDERED BY MD. PT INST TO PROVIDE URINE SAMPLE SOON POSSIBLE. PT UNABLE TO VOID AT THIS TIME. WILL MONITOR.
--- NOTE | 2019-05-14 19:21 | NUR ---
REPORT GIVEN TO ISAMAR RHODES.
--- NOTE | 2019-05-14 19:39 | NUR ---
PROVIDED PT AMARILIS AND DANNIE FRITZ PER DR REDDY.
--- NOTE | 2019-05-14 20:25 | NUR ---
PATIENT TAKEN TO TELE BY CARMELO GUDINO AND EMT. VSS-
[2019-05-14 20:42] VITALS: BP 120/63
[2019-05-14 22:53] LABS: microscopic required? NO
[2019-05-14 23:00] VITALS: BP 120/63
--- NOTE | 2019-05-14 23:00 | NUR ---
PT COMPLAINING OF 7/10 SHOOTING PAIN IN PELVIC REGION. GAVE PRN MORPHINE, WILL CONTINUE TO MONITOR.
[2019-05-14 23:06] LABS: UA SPECIFIC GRAVITY 1.025 (1.005-1.035); urine erythrocyte NEGATIVE (NEGATIVE)
[2019-05-14 23:22] VITALS: BP 120/63
--- NOTE | 2019-05-14 23:43 | NUR ---
PT RECIEVED FROM ED, VIA GURNEY ACCOMPANIED BY NURSE. PT IN NO APPARENT DISTRESS, PT ABULATED FROM GURNEY TO BED. BREATHING EVEN AND UNLABORED ON 2L NC. TELE #9, NSR. DENIES CHEST PAIN, N/V, DIZZINESS, AND PALPATIONS. VOIDS FREELY. AMBULATES SELF, HAS WALKER AT HOME. LUMP NOTED IN LEFT PELVIC AREA. ORIENTED TO ROOM AND DEVICES. BED AT LOWEST POSTIION, CALL LIGHT WITHIN REACH. WILL CONTINUE TO MONITOR.
--- NOTE | 2019-05-15 00:48 | NUR ---
PT COMPLAINING OF INSOMNIA, GAVE PRN AMBIAN. WILL CONTINUE TO MONITOR.
--- NOTE | 2019-05-15 01:24 | NUR ---
PT RESTING IN BED. RESTLESS. COMPLAINING OF INSOMNIA. MEDICATED WITH PRN AMBIAN. NO OTHER SIGNS OF DISTRESS NOTED. CALL LIGHT WITHIN REACH, BED AT LOWEST POSITION. WILL CONTINUE TO MONITOR.
--- NOTE | 2019-05-15 05:24 | NUR ---
PT RESTING IN BED COMFORTABLY WITH EYES CLOSED. NO S/S OF DISTRESS NOTED. PT BREATHING EVEN AND UNLABORED. NO SIGNIFICANT CHANGES THIS SHIFT. WILL ENDORSE TO DAY NURSE.
[2019-05-15 06:01] VITALS: BP 126/60
[2019-05-15 06:36] LABS: BASOPHIL % 0.6 % (0-2); PLATELET COUNT 297 x10^3mcL (130-400); RED CELL DISTRIBUTION WIDTH 14.2 % (11.5-14.5)
[2019-05-15 06:37] LABS: CALCIUM 8.8 mg/dL (8.5-10.1); CARBON DIOXIDE 35.4 mmol/L (21-32); CHLORIDE SERUM 104 mmol/L (98-107); CREATININE SERUM 0.5 mg/dL (0.6-1.0); GFR1 > 60 mL/min; GLUCOSE SERUM 100 mg/dL (74-106); POTASSIUM SERUM 4.2 mmol/L (3.5-5.1); SODIUM SERUM 141 mmol/L (136-145)
--- NOTE | 2019-05-15 07:40 | NUR ---
PATIENT AWAKE AND ORIENTED TO PERSON, PLACE AND TIME. PATIENT DENIES SHORTNESS OF BREATH OR NAUSEA/VOMITING AT THIS TIME. PATIENT STATES HAVING 8/10 SHARP PAIN TO LEFT INGUINAL AREA (HERNIA); WILL MEDICATE FOR PAIN SOON. TELE # 9 READS SINUS RHYTHMS AT THIS TIME. [place] TO LAC INTACT. CALL LIGHT WIHTIN REACH. SIDE RAILS UPX3. BED AT LOWEST POSITION.
--- NOTE | 2019-05-15 09:40 | NUR ---
DR. BRITT IN TO SEE THE PATIENT AND MADE AWARE THAT THE PATIENT NPO AND WAITING FOR SURGEON TO SEE THE PATIENT. DR. BRITT AGREES WITH THE PLAN.
[2019-05-15 10:23] VITALS: BP 124/60
[2019-05-15 11:58] VITALS: BP 121/57
--- NOTE | 2019-05-15 13:33 | NUR ---
CALLED TO AND MADE AWARE OF THE RESULTS OF THE CT SCAN ABD./PELVIS W/O CONTRAST W/ 2.9 X 2.6 CM MURAL THROMBUS. HE STATED TO WAIT FOR . HE MADE BANKS OF THE RESULTS OF THE CXR W/ TRACE PLEURAL EFFUSION AND HE WANTS TO WAIT FOR EDGER TAILER TO SEE PATIENT.
[2019-05-15 17:25] VITALS: BP 119/54
--- NOTE | 2019-05-15 19:18 | NUR ---
PATIENT AMBULATED AND USED BRP DURING THE SHIFT WITH SLOW BUT STEADY GAIT. PATIENT TOLERATED WITH CCHO DIET. REPORT GIVEN TO ROSIE SORENSEN RN. CONCERNS ADDRESSED.
--- NOTE | 2019-05-15 19:30 | NUR ---
PT IS A/O X4. ON TELE #4, NSR. DENIES ANY CHEST PAIN OR PRESSURE. PULSES ARE PRESENT. NO EDEMA NOTED. LIGHT WHEEZING ON EXHALE HEAR IN ALL FEILDS. ON 2L NC. DENIES ANY SOB. EQUAL CHEST RISE AND FALL. NO SIGN OF RESP DISTRESS. BOWEL SOUNDS PRESENT X4. DENIES ANY ABD PAIN OR DISTRESS. LUMP NOTED ON L GROIN AREA. DENIES PAIN AT THIS TIME. IV ON LAC INTACT AND PATENT. BED IS AT LOWEST SETTING. CALL LIGHT WITHIN REACH. WILL CONTINUE TO MONTIOR.
[2019-05-15 21:32] VITALS: BP 124/53
--- NOTE | 2019-05-16 01:00 | NUR ---
PT RESTING IN BED WITH BOTH EYES CLOSED. BREATHING EVEN AND UNALBORED. NO SIGN OF DISTRESS NOTED. BED IS AT LOWEST SETTING. CALL LIGHT WITHIN REACH. WILL CONTINUE TO MONTIOR.
[2019-05-16 05:39] VITALS: BP 136/68
--- NOTE | 2019-05-16 06:44 | NUR ---
PT RESTING COMFORTABLE IN BED. PT PAIN IS CONTROLLED AT THIS TIME. NO ACUTE EVENT OCCURED AT NIGHT. BED IS AT LOWEST SETTING. CALL LIGHT WITHIN REACH. WILL CONTINUE TO MONTIOR.
--- NOTE | 2019-05-16 07:37 | NUR ---
RECEIVED ASLEEP BUT AROUSABLE. NO ACUTE DISTRESS NOTED, NO C/O PAIN OR DISCOMFORT AT THIS TIME. CALL LIGHT WITHIN REACH. WILL CONTINUE WITH PLAN OF CARE.
[2019-05-16 08:15] VITALS: BP 136/71
--- NOTE | 2019-05-16 08:58 | NUR ---
C/O BACK PAIN 08/09. MEDICATED WITH NORCO PER ORDER.
[2019-05-16 11:31] VITALS: BP 131/59
--- NOTE | 2019-05-16 14:56 | NUR ---
C/O BACK PAIN 08/09, MEDICATED WITH NORCO PO.
[2019-05-16 16:06] VITALS: BP 130/55
--- NOTE | 2019-05-16 16:12 | NUR ---
RESTING IN BED, NO DISTRESS, NO C/O PAIN OR DISCOMFORT.
--- NOTE | 2019-05-16 18:43 | NUR ---
REMAINS IN NO ACUTE DISTRESS, AWAKE AND ALERT. VS WNL. NO C/O PAIN OR DISCOMFORT AT THIS TIME. HL PATENT. CALL LIGHT WITHIN REACH. WILL BE ENDORSED TO INCOMING SHIFT.
--- NOTE | 2019-05-16 20:00 | NUR ---
RECEIVED PT IN BED, ALERT AND ORIENTED. DENIES HEADACHE/DIZZINESS. RESP. EVEN AND UNLABORED. ON ROOM AIR, LUNG SOUNDS WITH FINE CRACKLES, DENIES SOB. NO ACUTE DISTRESS NOTED. SR ON THE MONITOR, DENIES CP OR ANY DISCOMFORT. HL TO LAC, INTACT AND PATENT.AFEBRILE AND VITAL SIGNS STABLE. ASSISTED WITH HS CARE. CALL LIGHT WITHIN REACH. WILL CONTINUE TO MONITOR.
[2019-05-16 20:07] VITALS: BP 123/59
--- NOTE | 2019-05-16 20:49 | NUR ---
COMPLAINED OF BACK PAIN, 5/10, MEDICATED WITH NORCO PO ORDERED. WILL CONTINUE TO MONITOR.
--- NOTE | 2019-05-16 22:02 | NUR ---
NO COMPLAINTS NOTED AT THIS TIME. PT STATES PAIN RELIEF. WILL CONTINUE TO MONITOR.
--- NOTE | 2019-05-17 01:01 | NUR ---
RESTING QUIETLY IN BED, WITH EYES CLOSED. APPEARS ASLEEP. EASILY AROUSABLE. RESP. EVEN AND UNLABORED. [address], NO ACUTE DISTRESS NOTED. WILL CONTINUE TO MONITOR.
--- NOTE | 2019-05-17 01:30 | NUR ---
AWAKE AT THIS TIME, PT REQUESTING SLEEPING MED. MEDICATED WITH AMBIEN ORDERED. WILL CONTINUE TO MONITOR.
[2019-05-17 05:27] VITALS: BP 111/43
[2019-05-17 06:04] LABS: BASOPHIL % 0.7 % (0-2); PLATELET COUNT 297 x10^3mcL (130-400); RED CELL DISTRIBUTION WIDTH 14.2 % (11.5-14.5)
--- NOTE | 2019-05-17 06:24 | NUR ---
AFEBRILE AND VITAL SIGNS STABLE. RESP. EVEN AND UNLABORED. NO ACUTE DISTRESS NOTED. COMPLAINED OF BACK PAIN, MEDICATED ORDERED, WITH RELIEF. RESTING QUIETLY AT THIS TIME. SR ON THE MONITOR. WILL ENDORSE TO INCOMING NURSE.
[2019-05-17 06:27] LABS: CALCIUM 9.2 mg/dL (8.5-10.1); CARBON DIOXIDE 32.1 mmol/L (21-32); CHLORIDE SERUM 101 mmol/L (98-107); CREATININE SERUM 0.6 mg/dL (0.6-1.0); GFR1 > 60 mL/min; GLUCOSE SERUM 101 mg/dL (74-106); POTASSIUM SERUM 4.3 mmol/L (3.5-5.1); SODIUM SERUM 139 mmol/L (136-145)
--- NOTE | 2019-05-17 07:05 | NUR ---
RECEIVED PATIENT FROM DIRECTOR OF PROGRAM MANAGEMENT NURSE. PATIENT IS RESTING WITH BOTH EYES CLOSED, AROUSABLE. TELE#9, NSR, HR 64. ON 2L NC, RESP E/U. IV NOTED TO LAC, SALINE LOCKED, NO S/S ERYTHEMA AT SITE. CALL LIGHT WITHIN EASY REACH. WILL CONTINUE PLAN OF CARE.
[2019-05-17 08:03] VITALS: BP 119/55
[2019-05-17 10:27] VITALS: BP 119/55
--- NOTE | 2019-05-17 11:19 | NUR ---
Initial Nutrition Assessment: Frida Jackson [place] Rm [id number] Dx: Abdominal pain, left inguinal hernia, Pneumonia PMHx: CAD, HTN, ID, Asthma, Bronchitis, COPD, Pneumonia, Diabetes PSHx: None Labs: CO2 32.1H, Hgb. 10.9L, Hct. 33L Meds: Aldactone, Ambien, Ativan, Glucophage, Humulin, Lipitor, Zestril Diet: CCHO PO intake since admission: (05/15) B- NPO, L-CCHO 85%, D-85%, (05/16) CCHO-100% Ht: 157.5cm, 62in Wt: 27.4kg, 60# BMI: 11kg/m2 (Underweight) Bed scale: 137#, 62kg IBW: 110#, 50kg %IBW: 54% UBW: 117-120# Age: 63/F Food Allergies: NKFA Skin: Intact Sukhi: 20 Edema: None GI: Last BM: 05/16/19 Per H&P: 63 YO FEMALE H/O COPD RESP FAILURE HTN DM DJD CAD ATHEROSCLEROSIS PRESENTD TO THE ED WITH L INGUINAL PAIN. SHE ALSO C/O SOB COUGH . PT WAS FULLY EVAULATED. CT CHEST ABD REVEALED LUNG INFILTRATES AND AN INGUIANL HERNIA CANNOT R/O INCARERATIONS. SHE WAS GIVEN RESP RX AND WAS TRANSFERRED TO TELE. RD Note (05/17/19): Frida was very alert and oriented when I spoke to her. She said she usually has a good appetite, but today it is poor. She mentioned that her appetite does tend to change frequently. Frida said her daughter cooks at home for her and no longer puts any salt in her food. Offered [facility] Type 2 Diabetes packet, but pt refused because she said that she was told her diabetes was under control. She said she was taking Metaformin, but because her blood sugar levels were normal she was told she no longer needed to take it. Checked bedscale of pt and asked usual body weight and pt actually has a BMI of 25.1. BMI incorrectly calculated previously. Calculations for estimated nutrtional needs were based on actual height and weight taken from pt. Problem with: N: No V: No D: No C: No Problems with: Chewing: None Swallowing: None Current appetite: Poor Recent wt change: None %wt change: None Vitamin/Supplement use: None Special diet at home: Regular Physical activity: Sometimes walks Nutrition education given (specify specific nutrition education and handout given): NCM Cardiac TLC diet packet per pt. request. Food-drug interactions: Aldactone and Zestril (diuretic) watch Potassium levels, Antivan/Lipitor: limit caffine ,400-500mg/day and avoid grapefruit juice. Education given: Yes Estimated Nutritional Needs Based on actual body weight (62 kg) Energy: 0472-0392 kcal/day (30-35kcal/kg for PNA) Protein: 74-80g/day (1.2-1.3g/kg for lean body mass) Fluid: 1800-2100mL/day (1 mL/kcal) or per dr. Nutrition Diagnosis: 1. Increased nutrient needs r/t increased metabolic needs aeb diagnosis of pneumonia and estimated calorie and protein needs. Intervention 1. Continue CCHO diet and add cardiac 2. NCM TLC diet given Monitor/Evaluate Goal: PO intake at least 75% of estimated needs Monitor: PO intake, Labs, GI function LR F/U in days as risk 05/24/19
--- NOTE | 2019-05-17 11:19 | NUR ---
Intervention 1. Continue CCHO diet and add cardiac 2. NCM TLC diet given
[2019-05-17 11:44] VITALS: BP 128/59
--- NOTE | 2019-05-17 12:30 | NUR ---
PATIENT SITTING AT BEDSIDE ENJOYING LUNCH. DENIES PAIN, DISCOMFORT AND SOB. WILL CONTINUE PLAN OF CARE.
[2019-05-17 15:39] VITALS: BP 112/60
--- NOTE | 2019-05-17 18:31 | NUR ---
PATIENT RESTING EASY. DENIES PAIN AND DISCOMFORT. DENIES SOB ON 2L NC, RESP E/U. PATIENT CARE TO BE ENDORSED TO ASSOCIATE PROFESSOR OF BIOLOGY NURSE.
[2019-05-17 19:40] VITALS: BP 129/61
--- NOTE | 2019-05-17 19:46 | NUR ---
TELE #9 RETURNED TO TELE STATION, PER DR. BALWINDER MCGOWAN PT IS NOW MED/SURG.
--- NOTE | 2019-05-17 19:46 | NUR ---
RECEIVED PT FROM PREVIOUS SHIFT. AAO. ABLE TO MAKE NEEDS KNOWN. SPEECH CLEAR. DENIES PAIN. NO S/S ACUTE DISTRESS. BREATHING E/U ON 2.5L OYXGEN WITH HUMIDIFIER. DENIES N/V. PT C/O PRODUCTIVE COUGH WITH SMALL AMOUNT OF WHITE SPUTUM, EXPIRATORY WHEEZES NOTED. IV TO RFA CDI, IVF INFUSING WELL. CALL LIGHT WITHIN REACH. SAFETY MEASURES IN PLACE. WILL CONTINUE TO MONITOR.
--- NOTE | 2019-05-17 20:31 | NUR ---
PT C/O PAIN AND "BURNING" TO LFA IV, ERYTHEMA NOTED, NO EDEMA. CATHETER REMOVED WITH IV INTACT. NEW IV #22 GAUGE INSERTED INTO LFA, FLUSHES WELL, PT TOLERATED WELL. AZITHROMYCIN RESUMED AT THIS TIME.
--- NOTE | 2019-05-17 23:07 | NUR ---
MEDICATED PER EMAR FOR 06/09 ACHING HIP AND BACK PAIN.
--- NOTE | 2019-05-18 00:37 | NUR ---
PT RESTING IN BED, BREATHING E/U, NO S/S ACUTE DISTRESS, NO SIGNS OF PAIN NOTED. CALL LIGHT WITHIN REACH. SAFETY MEASURES IN PLACE. WILL CONTINUE TO MONITOR.
[2019-05-18 04:56] VITALS: BP 116/56
--- NOTE | 2019-05-18 05:08 | NUR ---
PT C/O 10/ ACHING BACK PAIN, MEDICATED PER EMAR.
[2019-05-18 06:41] LABS: BASOPHIL % 0.8 % (0-2); PLATELET COUNT 311 x10^3mcL (130-400)
[2019-05-18 06:46] LABS: CALCIUM 9.2 mg/dL (8.5-10.1); CARBON DIOXIDE 32.7 mmol/L (21-32); CHLORIDE SERUM 99 mmol/L (98-107); CREATININE SERUM 0.8 mg/dL (0.6-1.0); GFR1 > 60 mL/min; GLUCOSE SERUM 124 mg/dL (74-106); POTASSIUM SERUM 5.2 mmol/L (3.5-5.1); SODIUM SERUM 138 mmol/L (136-145)
[2019-05-18 07:07] LABS: RED CELL DISTRIBUTION WIDTH 14.6 % (11.5-14.5)
--- NOTE | 2019-05-18 07:10 | NUR ---
PATIENT RESTING WITH EYES CLOSED, SNORING, HOB SLIGHTLY ELEVATED. NC IN PLACE 2.5L HUMID. NO SIGN OF ACUTE DISTRESS, WILL CONT TO MONITOR AND ASSESS.
--- NOTE | 2019-05-18 07:32 | NUR ---
PATIENT A/OX4, EATING BREAKFAST MEAL. ABLE TO MAKE NEEDS KNOWN AND FOLLOW COMMANDS. DENIES HEADACHE OR CHEST PAIN AT THIS TIME. LUNGS WITH MILD EXP WHEEZING BILAT, BREATHING E/U ON 2.5L NC W/HUMIDIFIER, REPORTS PROD COUGH SMALL AMOUNT, INCENTIVE SPIR WITHIN REACH AND REINFORCED. REPORTS USES HOME O2 2.5L NC. BOWEL SOUNDS ACTIVE, DENIES N/V. REPORTS MILD TENDERNESS TO PALPATION TO LEFT INGUINAL (HERNIA). VOIDS FREELY, DENIES DISCMOFORT. SKIN INTACT. IV ACCESS TO LAC SITE WNL. CALL LIGHT WITHIN REACH AND DEMONSTRATES UNDERSTANDING ON HOW TO USE.
[2019-05-18 08:59] VITALS: BP 107/46
--- NOTE | 2019-05-18 12:21 | NUR ---
SPOKE WITH DR BRITT, TELEPHONE READ BACK ORDER RECEIVED AND PLACED FOR REPEAT CHEST XRAY TODAY TO FOLLOW UP ON PNA.
[2019-05-18] MEDS ORDERED: XAN1 PO (17:19)
[2019-05-18 17:59] VITALS: BP 92/53
--- NOTE | 2019-05-18 19:45 | NUR ---
RECEIVED AWAKE IN BED WATCHING TV, DENIES ANY PAIN/DISCOMFORT AT THIS TIME, WAS GIVEN NORCO BY AM AM SHIFT EARLIER. PAIN LEVEL 0/10. IV ACCESS AT THE LAC AREA INTACT AND PATENT, AZITHROMYCIN IVPB IN PROGRESS, FOR EMPIRIC MANAGEMENT OF PNEUMONIA. BLOOD SUGAR CHECK 99MG/DL, NO S.S OF GLYCEMIC REACTION. CALL LIGHT WITHIN REACH.
[2019-05-18 20:37] VITALS: BP 125/61
--- NOTE | 2019-05-18 22:35 | NUR ---
C/O MODERATE PAIN THE INGUINAL AREA RADIATING TO ABDOMINAL AREA ON SCALE 6/10, NORCO 10/325MG PO PRN MEDICATION. ORAL FLUIDS TOLERATED WELL. WILL REASSESED PAIN LEVEL WITHIN 1HR.
--- NOTE | 2019-05-19 00:30 | NUR ---
EYES CLSOED, NO FACIAL GRIMACING NOTED. RESPIRATION EVEN AND UNLABORED. CALL LIGTH WITHIN REACH.
--- NOTE | 2019-05-19 05:30 | NUR ---
BLOOD MSUGAR CHECK DONE =84MG/DL, NO S/S OF GLYCEMIC REACTION NOTED. ORAL FLUIDS TOLERATED WELL. NORCO 10/325MG 1TAB GIVRN FOR MODERATE PAIN AT THE INGUINAL AREA/BACK/ABDOMIANL AREA/ AMBULATED TO BATHROOM FOR PERSONAL NEEDS. KEPT CLEAN AND DRY.
[2019-05-19 05:49] VITALS: BP 117/60
[2019-05-19 06:22] LABS: BASOPHIL % 0.5 % (0-2); PLATELET COUNT 344 x10^3mcL (130-400)
[2019-05-19 06:47] LABS: CALCIUM 9.3 mg/dL (8.5-10.1); CARBON DIOXIDE 30.8 mmol/L (21-32); CHLORIDE SERUM 94 mmol/L (98-107); CREATININE SERUM 0.7 mg/dL (0.6-1.0); GFR1 > 60 mL/min; GLUCOSE SERUM 75 mg/dL (74-106); POTASSIUM SERUM 4.7 mmol/L (3.5-5.1); SODIUM SERUM 132 mmol/L (136-145)
[2019-05-19 07:15] LABS: RED CELL DISTRIBUTION WIDTH 14.9 % (11.5-14.5)
--- NOTE | 2019-05-19 08:16 | NUR ---
AT 0755 - RECEIVED PATIENT FROM NIGHT NURSE. AWAKE, ALERT AND ORIENTED X 4. RESPIRATIONS REGULAR. RECEIVING BREATHING TREATMENT AT THIS TIME. PATIENT ENCOURAGED TO USE INSENTIVE SPIROMETER. IV SALINE LOCKED. NO C/O PAIN AT THIS TIME. PATIENT ALSO ENCOURAGED TO AMBULATE.
[2019-05-19 09:25] VITALS: BP 126/45
--- NOTE | 2019-05-19 14:24 | NUR ---
AT 0900 - PATIENT C/O ITCHINESS OF BUE. NOTED SEVERAL SMALL RAISED AREAS/WELTS WITH SLIGHT REDDNESS. MOISTURING CREAM APPLIED. AT 0930 - CHARGE NURSE RECEIVED ORDER FOR BENADRYL FROM DR BRITT. AT 0954 - MEDICATED WITH IV BENADRYL PER EMAR. AT 1030 - REPORTS SOME RELIEF OF ITCHINESS. C/O LEFT GROIN PAIN. AT 1043 - MEDICATED WITH NORCO PER EMAR. AT 1400 - RESTING QUIETLY. NO COMPLAINTS. ENCOURAGED TO CONTINUE USING INSENTIVE SPIROMETER.
[2019-05-19 16:48] VITALS: BP 114/42
--- NOTE | 2019-05-19 18:13 | NUR ---
AWAKE, ALERT AND ORIENTED. VSS. AFEBRILE. USING INSENTIVE SPIROMETER EFFECTIVELY. AMBULATING SHORT DISTANCES. CONTINUES TO HAVE PERSITANT LEFT GROIN PAIN WITH MODERATE RELIEF WITH NORCO 10/325. ALSO C/O BACK PAIN. WILL ENDORSE CARE TO NIGHT NURSE.
--- NOTE | 2019-05-19 19:30 | NUR ---
PT. AWAKE, ALERT, ORIENTED X4. DENIES HEADACHE OR DIZZINESS. SPEECH CLEAR. BREATH SOUNDS DIMINISHED BLL, RESP. EVEN, UNLABORED. NO SOB NOTED. PT. ON 2.5L/NC W/ HUMIDIFIER. ABD. SOFT AND ROUND, BOWEL SOUNDS ACTIVE. DENIES ABD. PAIN, DENIES NAUSEA. NO EDEMA NOTED TO EXTREMITY, PEDAL PULSES STRONG. SCATTERED RED RAISED AREAS TO BUE, PER PT. IMPROVING, PER PT. SWELLING DERCREASING. DENIES ANY ITCHING OR PAIN AT THIS TIME. CALL LIGHT WITHIN REACH.
[2019-05-19 21:01] VITALS: BP 106/46
--- NOTE | 2019-05-19 22:39 | NUR ---
PT. C/O PAIN IN ANKLE, PAIN LEVEL 7/10. PRN NORCO GIVEN ORDERED. WILL MONITOR.
--- NOTE | 2019-05-20 01:49 | NUR ---
PT. C/O FEELING ITCHY TO HER BUE. STATED THAT SHE IS BREAKING OUT IN "THOSE RED BUMPS AGAIN". PT. ASSESSED DURING START OF SHIFT, AND NO NEW BREAKOUTS OF RED BUMPS NOTED. PT. DENIES BEING ITCHY ALL OVER. PT. STATED THAT SHE BELIEVES THAT HER ITCHING COULD BE RELATED TO NICODERM PATCH. PT. ALSO STATED THAT SHE GETS NERVOUS BREAKOUTS AT TIMES R/T HER ANXIETY. PRN BENADRYL, IVO, GIVEN ORDERED. WILL MONITOR.
[2019-05-20 05:22] VITALS: BP 120/56
--- NOTE | 2019-05-20 05:23 | NUR ---
PT. C/O PAIN IN HER LOWER BACK AND SHOULDER. PAIN LEVEL 7/10. PER PT. PRN NORCO GIVEN ORDERED. WILL MONITOR
--- NOTE | 2019-05-20 06:25 | NUR ---
PT. RESTING QUIETLY. DOZING INTERMITTENTLY. RECEIVED PRN NORCO FOR C/O BACK AND SHOULDER PAIN, 04/09. PT. W/ HEATING PAD TO RIGHT SHOULDER. PT. STATED THAT PAIN LEVEL IS IMPROVED, NOW 01/07. CALL LIGHT REMAINS WITHIN REACH. WILL ENDORSE PT CARE TO INCOMING NURSE.
[2019-05-20 06:39] LABS: BASOPHIL % 0.4 % (0-2); PLATELET COUNT 353 x10^3mcL (130-400)
[2019-05-20 07:08] LABS: RED CELL DISTRIBUTION WIDTH 14.7 % (11.5-14.5)
[2019-05-20 07:12] LABS: CALCIUM 9.3 mg/dL (8.5-10.1); CARBON DIOXIDE 32.5 mmol/L (21-32); CHLORIDE SERUM 93 mmol/L (98-107); CREATININE SERUM 0.7 mg/dL (0.6-1.0); GFR1 > 60 mL/min; GLUCOSE SERUM 80 mg/dL (74-106); POTASSIUM SERUM 4.7 mmol/L (3.5-5.1); SODIUM SERUM 131 mmol/L (136-145)
[2019-05-20 07:30] VITALS: BP 123/60
--- NOTE | 2019-05-20 07:37 | NUR ---
AT 0715 - RECEIVED PATIENT FROM NIGHT NURSE. RESTING WITH EYES CLOSED. RESPIRATIONS REGULAR. CONTINUING TO MONITOR.
[2019-05-20 09:04] VITALS: BP 101/37
--- NOTE | 2019-05-20 10:13 | NUR ---
AT 0800 - AWAKE, ALERT AND OREITNED. HAS EATEN BREAKFAST. REPORTS SOME RELIEF OF LEFT REBEKAH PAIN IS STIL /10 AND THAT SHE ALSO HAS BACK AND R SHOULDER PAIN. K-PAD IN PLACE TO BACK AND SHOULDER. AT 0810 - SCHEDULED BP MEDS HELD THIS MORNING DUE TO LOW BP 101/37 MAP 58. HR 69. DENIES ANY DIZZINESS. AT 1000 - RESTING QUIETLY
--- NOTE | 2019-05-20 12:48 | NUR ---
REPROTS GOOD RELIEF OF PAIN AFTER RECEIVING NORCO 10/325.
--- NOTE | 2019-05-20 15:42 | NUR ---
SURGICAL CONSENT FOR REPAIR OF INCARCERATED LEFT INGUINAL HERNIA WITH MESH, HAS BEEN SIGNED BY PATIENT. PATIENT'S FAMILY VISITING.
[2019-05-20 17:30] VITALS: BP 123/60
--- NOTE | 2019-05-20 18:42 | NUR ---
VSS. AFEBRILE. PAIN UNDER CONTROL WITH NORCO 10/325. RESPIRATIONS REGULAR. USING INNSETIVE SPIROMETER INTERMITTENTLY. IVV ZITHROMAX INFUSING AT THIS TIME. WILL ENDORSE CARE TO NIGHT NURSE.
--- NOTE | 2019-05-20 19:47 | NUR ---
PT. AWAKE, ALERT, SITTING UP IN BED. APPEARS COMFORTABLE. BREATH SOUNDS CLEAR THROUGHOUT LUNG [place], RESP. EVEN, UNLABORED. BLL SLIGHTLY DIMINISHED. PT. ON 1.5 LITERS/NC, DENIES CHESTPAIN OR DISCOMFORT. PEDAL PULSES MODERATE BLE. ABD. SOFT AND ROUND, BOWEL SOUNDS ACTIVE. DENIES ABD. PAIN, DENIES NAUSEA. IV SITE INTACT. CALL LIGHT WITHIN REACH.
[2019-05-20 20:40] VITALS: BP 116/57
--- NOTE | 2019-05-20 23:38 | NUR ---
PT. C/O LT. GROIN PAIN, 05/09. PRN NORCO GIVEN ORDERED. WILL MONITOR.
--- NOTE | 2019-05-21 00:52 | NUR ---
PT. DOZING, EYES CLOSED. CALL LIGHT WITHIN REACH. WILL CONTINUE TO MONITOR.
[2019-05-21 05:18] VITALS: BP 105/50
--- NOTE | 2019-05-21 07:26 | NUR ---
PT. C/O PAIN IN HER BACK AND LT. GROIN AREA THIS MORNING. PRN NORCO GIVEN ORDERED. IV SITE REMAINS INTACT, CALL LIGHT WITHIN REACH, WILL ENDORSE PT. CARE TO INCOMING NURSE.
--- NOTE | 2019-05-21 07:30 | NUR ---
PT ENDORSE TO ME THIS MORNING, LAYING IN BED RESTING. REMAINS NPO FOR PROCEDURE AT 1200 NOON. AA/O X4 BREATHING EVEN AND UNLABORED ON RA, NO ACUTE RESP DISTRESS OR SOB NOTED, REMAINS ON 1.5 TOLERATNG WELL. MEDSURG, DENIES ANY CP OR PRESSURE. VOIDS FREELY. AMB. IV TO RFA INACT AND PATENT, NO REDNESS OR SWELLING NOTED. WILL CONTINUE TO MONITOR..
--- NOTE | 2019-05-21 08:16 | NUR ---
WILL ENDORSE CARE TO LILIA LAI
--- NOTE | 2019-05-21 08:16 | NUR ---
REPORT GIVEN TO HANDY FROM OR.
[2019-05-21 08:54] VITALS: BP 112/56
--- NOTE | 2019-05-21 09:09 | NUR ---
RESUMED CARE OF THIS PT FROM VANDANA-CARMELO. PT RECEIVED IN NO DISTRESS. AWAKE AND ALERT. NIO C/O PIAN OR DISCOMFORT. MADALYN WIPES DONE, PT LEFT FOR SURGERY. WILL CONTINUE WITH PLAN OF CARE.
[2019-05-21 12:08] VITALS: BP 145/65
--- NOTE | 2019-05-21 12:26 | NUR ---
PT BACK FROM OR IN NO DISTRESS. AWAKE ALERT AND ORIENTED. BP SLIGHTLY ELEVETED. ROUTINE AM MEDS GIVEN. PT DENIES PAIN AT THIS TIME. FAMILY AT BEDSIDE. INCISION SITE WITH DERMABOND INTACT, WANDER. CALL LIGHT WITHIN REACH. WILL CONTINUE TO MONITOR.
--- NOTE | 2019-05-21 13:16 | NUR ---
PT C/O PAIN TO INCISION SITE AND BACK PAIN. MEDICATED WITH NORCO PO PER ORDER. FAMILY AT BEDSIDE.
--- NOTE | 2019-05-21 15:20 | NUR ---
RESTING IN BED, NO DISTRESS. REPORTED PAIN RELIEF FROM NORCO.
[2019-05-21 17:17] VITALS: BP 128/60
--- NOTE | 2019-05-21 19:15 | NUR ---
MEDICATED WITH NORCO PO FOR ABD. INCISION SITE PAIN 08/09. REMAINS IN NO DISTRESS, AWAKE AND ALERT. VS WNL. NEW HL INSERTED TO LT HAND,PATENT. CALL LIGHT WITHIN REACH. WILL BE ENDORSED TO INCOMING SHIFT.
--- NOTE | 2019-05-21 19:30 | NUR ---
CARE ASSUMED FROM OUTGOING RN. PT RESTING COMFORTABLY IN BED. DAY SHIFT RN MEDICATED PT FOR PAIN. PAIN IS RESOLVING. EVEN AND UNLABORED RESPIRATIONS ON 2LNC. IV PATENT AND INTACT RUNNING ANTIBIOTICS PER EMAR. PT C/O BURNING PAIN TO IV SITE. IV FLUSHING WELL WITH BLOOD RETURN NOTED. IV RATE REDUCED TO 150ML/HR. SURGICAL INCISION WITH DERMABOND NOTED, CLEAN AND DRY WITH NO S/S OF INFECTION. BED IN LOWEST POSITION. SIDE RAILS UPX2. CALL LIGTH WITHIN REACH. WILL CONTINUE TO MONITOR.
[2019-05-21 19:33] VITALS: BP 113/50
--- NOTE | 2019-05-22 00:05 | NUR ---
PT ASLEEP COMFORTABLY IN BED. NO ACUTE DISTRESS NOTED. EVEN AND UNLABORED RESPIRATIONS ON 2LNC. IVL PATENT AND INTACT. BED IN LOWEST POSITION. SIDE RAILS UPX2. CALL LIGHT WITHIN REACH. WILL CONTINUE TO MONITOR.
[2019-05-22 05:04] VITALS: BP 105/42
--- NOTE | 2019-05-22 06:18 | NUR ---
PT SLEPT COMFORTABLY IN INTERVALS THROUGHOUT THE SHIFT. NO ACUTE CHANGES NOTED. EVEN AND UNLABORED RESPIRATIONS ON 2LNC. IVL PATENT AND INTACT. ALL NEEDS TENDED TO AND MET. ALL SCHEDULED MEDICATIONS GIVEN. C/O OF PAIN MEDICATED PER EMAR. BLOOD SUGARS, 212 AND 103, COVERED PER SLIDING SCALE. SURGICAL INCISION WITH DERMABOND INTACT. NO S/S OF INFECTION. BED IN LOWEST POSITION. SIDE RAILS UPX2. CALL LIGHT WITHIN REACH. WILL ENDORSE TO ONCOMING RN.
[2019-05-22 06:43] VITALS: BP 121/57
--- NOTE | 2019-05-22 07:04 | NUR ---
PT C/O DIFFICULTY BREATHING WHILE LAYING DOWN FLAT. STATES SHE USES 2.5L AT HOME. INCREASED O2 TO 2.5L. PT TOLERATING WELL. WILL ENDORSE TO ONCOMING SHIFT.
--- NOTE | 2019-05-22 07:05 | NUR ---
RECEIVED PT FROM NIGHT NURSE. PT IS LAYING DOWN IN BED WITH HOB UP. RESPIRATIONS EVEN AND UNLABORED ON 2.5L NC. PT IS COMPLAINING OF PAIN TO THE LEFT GROIN INCISION SITE AND TO THE BACK. INCISION SITE DERMABOND IS CDI WITH NO SIGNS OF ERYTHEMA OR SWELLING. INFORMED PT THAT PAIN MEDICATION IS NOT DUE YET AND OFFERED PT HEATING PAD FOR THE BACK, PT REFUSED HEATING PAD AND STATES THAT SHE CAN WAIT FOR THE PAIN MEDICATION TO BE DUE. IV SITE PATENT WITH NO SIGNS OF ERYTHEMA OR SWELLING. BED IN LOWEST POSITION, CALL LIGHT WITHIN REACH. WILL CONITNUE TO MONITOR.
[2019-05-22 08:06] VITALS: BP 132/60
--- NOTE | 2019-05-22 10:15 | NUR ---
ASSISTED PT WITH AMBULATING TO THE BATHROOM WITH JUAN. PT STATES FEELING A LITTLE WEAK WITH AMBULATION AND FEELS SOME PAIN AT THE INCISION SITE BUT PT STATES THE PAIN IS NOT BAD IT WAS BEFORE GETTING THE PAIN MEDICATION. ASSISTED PT BACK TO BED AND GAVE PT A BEDBATH AND PROVIDED PT WITH NO SOCKS AND GOWN AND WELL ASSISTED PT WILL BRUSHING HAIR. PT STATES THAT SHE FEELS COMFORTABLE AT THIS TIME. CALL LIGHT WITHIN REACH. WILL CONITNUE TO MONITOR.
--- NOTE | 2019-05-22 10:40 | NUR ---
PT IS COMPLAINING OF FEELING ANXIOUS AND IS REQUESTING TO HAVE MEDICATION TO HELP WITH THE ANXIETY. PT STATES THAT SHE TAKES XANEX AT HOME AND WOULD LIKE SOMETHING SIMILAR. WILL MEDICATE ACCORDING TO EMAR.
[2019-05-22 11:36] VITALS: BP 119/58
[2019-05-22 15:37] VITALS: BP 119/58
--- NOTE | 2019-05-22 17:00 | NUR ---
PT COMPLAINING OF 6/10 TO THE INCISIONAL SITE. PT STATES PAIN WORSENS WITH MOVEMENT AND PT IS REQUESTING NORCO. REPOSITIONED PT AND MADE COMFORTABLE IN BED. CALL LIGHT WITHIN REACH. WILL MEDICATE ACCORDING TO EMAR.
[2019-05-22 18:01] VITALS: BP 125/59
--- NOTE | 2019-05-22 18:30 | NUR ---
PT AWAKE, ALERT AND ORIENTED AT TIME OF DISCHARGE. PT LOOKED TO BE IN NO ACUTE DISTRESS AT TIME OF DISCHARGE. PT DISCHARGED HOME AND WENT TO LOBBY VIA WHEELCHAIR ACCOMPANIED BY NURSE AND FAMILY MEMBER WITH BELLIANAS IN HAND. PROVIDED PT WITH EDUCATION AND FOLLOW UP APPOINTMENT. PT VERBALIZED UNDERSTANDING OF EDUCATION. NO NEW PRESCRIPTIONS ORDERED. FOLLOW UP APPOINTMENT SET FOR 05/24. PT VERBALIZED UNDERSTANDING OF FOLLOW UP APPOINTMENT. IV CATHETER REMOVED AND CATHETER FULLY INTACT. ADDRESSED ALL QUESTIONS AND CONCERNS.
== END 2019-05-22 18:49 | disposition home or self-care (01) | DRG 228 ==
LOC: ED 16:55 → DU 18:51 → MU 18:51 → DU 20:28 → MU 05-17 15:10
PROVIDERS: Emergency Medicine; Surgery; ADMIT Internal Medicine
PROC: 0YU60JZ Supplement Left Inguinal Region with Synthetic Substitute, Open Approach (ICD-10-PCS; principal; 2019-05-21 12:00)
DX: K40.30 Unilateral inguinal hernia, with obstruction, without gangrene, not specified as recurrent (principal); J18.9 Pneumonia, unspecified organism; I25.10 Atherosclerotic heart disease of native coronary artery without angina pectoris; F17.210 Nicotine dependence, cigarettes, uncomplicated; I25.2 Old myocardial infarction; Z86.718 Personal history of other venous thrombosis and embolism; Z88.1 Allergy status to other antibiotic agents; Z88.0 Allergy status to penicillin; Z88.2 Allergy status to sulfonamides; I10 Essential (primary) hypertension; J44.9 Chronic obstructive pulmonary disease, unspecified; D64.9 Anemia, unspecified
CPT/HCPCS: 82962; 97116-GP; 97530-GP; 99406; C1781; G0378; J0456; J1170; J1200; J1580; J2001; J2270; J2405; J2704; J3010; J3490; J7030; J7040; J7050; J7120; J7620; Q0092; Q0162

== ENCOUNTER 2019-07-11 11:38 | Inpatient (IN) | payer OTHER ==
[~2019-07-11] VITALS: Ht 154.9 cm; Wt 57.8 kg
[~2019-07-11 11:38] MED LIST changes: +XAN1 PO
--- NOTE | 2019-07-11 11:46 | NUR ---
PT BIBA FROM HOME FOR INCREASED SHORTNESS OF BREATH FOR THE LAST SEVERAL DAYS, PT HAS HX OF COPD. PT DENIES ANY CP, DOES ADMIT TO SMOKING CIGARETTES. SKIN W/D/I. PT TACHYPNIC AT 24 BPM. LS-RHONCHI THROUGHOUT WITH ACCESOORY MUSCLE USE. RT CALLED TO BEDSIDE. PT CAME IN WITH RT HAND SL #20-PATENT, PT DENIES ANY RECENT FEVERS. WAIITKARL FOR MSE.
[2019-07-11 12:56] LABS: CALCIUM 9.4 mg/dL (8.5-10.1); CARBON DIOXIDE 35.2 mmol/L (21-32); CHLORIDE SERUM 102 mmol/L (98-107); CREATININE SERUM 0.5 mg/dL (0.6-1.0); GFR1 > 60 mL/min; GLUCOSE SERUM 101 mg/dL (74-106); POTASSIUM SERUM 4.3 mmol/L (3.5-5.1); SODIUM SERUM 142 mmol/L (136-145)
[2019-07-11 12:57] LABS: BASOPHIL % 0.2 % (0-2); PLATELET COUNT 379 x10^3mcL (130-400)
[2019-07-11 13:01] LABS: ALBUMIN 3.7 g/dL (3.4-5.0); ALKALINE PHOSPHATASE 106 U/L (46-116); ALT/SGPT 19 U/L (14-59); AST/SGOT 14 U/L (15-37); BILIRUBIN TOTAL 0.6 mg/dL (0.20-1.00); TOTAL PROTEIN, SERUM 6.9 g/dL (6.4-8.2)
--- NOTE | 2019-07-11 13:41 | NUR ---
NO ACUTE CHANGE IN CONDITION, PT LAYING IN BED, REPORTS MILD PAIN TO LOWER BACK AREA, CHRONIC. STATES SHE FEELS BETTER RESPIRATORY STEVENS. PT CONTINUES TO BE ON 02-3L VIA NC AT 97%.
--- NOTE | 2019-07-11 15:16 | NUR ---
REPORT GIVEN TO RUBI RHODES, UPDATED ON STATUS, LABS AND VITALS..PT STABLE FOR TRANSFER. ALL BELONGINGS WITH PT.
--- NOTE | 2019-07-11 15:32 | NUR ---
RECEIVED PT FROM ED VIA LUDY, CAME IN DUE TO INCREASED SOB. AAOX4. DENIES HEADACHE/DIZZINESS. C/O SOB, WHEEZES AND CRACKLES NOTED ON AUSCULTATION, O2 SAT=96% ON 2LPM/NC. W/ PRODUCTIVE COUGH, ABLE TO EXPECTORATE WHITE PHLEGM. DENIES CHEST PAIN/PRESSURE, SR ON THE MONITOR. DENIES ABDOMINAL DISCOMFORT. C/O 8/10 BILATERAL HIP PAIN. W/ LINEAR SCAR ON THE LEFT GROIN. IV SITE PATENT AND INTACT. SIDE RAILS UPX2. CALL LIGHT ON REACH. PRIMARY NURSE RUBI FOR COTNINUITY OF CARE
[2019-07-11 15:47] VITALS: BP 164/74
[2019-07-11 15:55] VITALS: Ht 154.9 cm; Wt 57.8 kg
--- NOTE | 2019-07-11 16:42 | NUR ---
PATIENT IS IN BED WATCHING TV. O2 ON AT 2L VIA N/C. NO RESP DISTRESS NOTED. CALL LIGHT WITHIN REACH AND PATIENT INSTRUCTED TO USE FOR ASSIST.
--- NOTE | 2019-07-11 17:55 | NUR ---
PATIENT SITTING UP ON THE SIDE OF THE BED EATING DINNER TRAY. C/O BILAT HIP AND LOWER BACK PAIN 8/10 ON THE PAIN SCALE. MEDICATED WITH NORCO PO AT THIS TIME. WILL MONITOR FOR EFFECT.
--- NOTE | 2019-07-11 18:24 | NUR ---
PATIENT REMAINS ALERT AND ORIENTED NO RESP DISTRESS NOTED. WILL CONTINUE TO MONITOR.
[2019-07-11 19:43] VITALS: BP 131/61
--- NOTE | 2019-07-11 19:53 | NUR ---
RECEIVED PT IN BED NO RESP DISTRESS NOTED, ON 2L N/C SAT 98% , LUNG SOUNDS WITH WHEEZES PRODICTIVE COUGH NOTED , ABD SOFT BS ACTIVE X4 ,ON TELE NU,JASVIR 10 THAT SHOWS NSR . PT DENY CHEST/BACK PAIN AT THE MOMENT , CALL LIGHT WITHIN PT'S REACH , WILL CON'T TO MONITOR AND ASSIST PT WITH CARE .
--- NOTE | 2019-07-11 22:11 | NUR ---
PT C/O SEVERE HIP/BACK PAIN 10/10 AND ANXIETY , ATIVAN AND NORCO GIVEN , WILL CON'T TO MONITOR PT CLOSELY.
--- NOTE | 2019-07-12 01:27 | NUR ---
AT 0105 PTS RHYTHM WENT FROM NSR TO JUNCTIONAL TO NSR , DR BRITT AWARE , PT'S ASYMPTOMATIC AT THE MOMENT SITTING ON THE EDGE OF THE BED EATING . WILL C ON'T TO MONITOR P[T CLOSELY.
--- NOTE | 2019-07-12 03:08 | NUR ---
PT'S IN BED WITH EYES CLOSED , TELE NSR .
[2019-07-12 05:33] VITALS: BP 140/75
--- NOTE | 2019-07-12 05:57 | NUR ---
I HAVE REVIEWED THE DATA COLLECTION BY TIERNEY (NAME): CHERYL ORTIZ ENTERED ON (DATE/TIME): 07/12/19 0536 I CONCUR WITH THE DATA AND ANY EXCEPTIONS OR COMMENTS ARE LISTED BELOW:
--- NOTE | 2019-07-12 06:31 | NUR ---
PT DENY PAIN AT THE MOMENT , ALL DUE MEDS GIVEN NO REACTION NOTED, HL INTACT INGUSING WELL , TELE NSR , NO RESP DISTRESS NOTED .
--- NOTE | 2019-07-12 07:30 | NUR ---
RECEIVED PATIENT IN BED, AWAKE ALERT AND ORIENTED. SPEECH CLEAR, O2 ON AT 2L VIA N/C. R.T. PROTOCOL IN PLACE. RESP EVEN AND UNLABORED, WHEEZES AND FINE CRACKLES NOTED. ABD SOFT BOWEL SOUNDS ACTIVE, DENIES ANY N/V/D LBM WAS YESTERDAY PER PATIENT. PATIENT C/O BILAT HIP PAIN OFF AND ON. NOW PAIN LEVEL IS ABOUT A 5/10 ON THE PAIN SCALE AFTER NOC NURSE GAVE NORCO EARLIER THIS AM. TELE 10 NSR. WILL CONTINUE TO MONITOR.
[2019-07-12 08:08] VITALS: BP 146/68
--- NOTE | 2019-07-12 11:17 | NUR ---
PATIENT IS IN BED C/O BILAT HIP PAIN 8/10 ON THE PAIN SCALE. MEDICATED WITH NORCO PO ORDERED. WILL CONTINUE TO MONITOR.
[2019-07-12 11:56] VITALS: BP 113/63
--- NOTE | 2019-07-12 14:39 | NUR ---
PATIENT'S PLAN OF CARE WAS DISCUSSED AND REVIEWED WITH AIR REDUCTION EQUIPMENT OPERATOR:RUBI ESPARZA. I HAVE REVIEWED THE DATA COLLECTION BY AIR REDUCTION EQUIPMENT OPERATOR (NAME):RUBI ESPARZA. ENTERED ON (DATE/TIME):07/12/19. I CONCUR WITH THE DATA AND ANY EXCEPTIONS OR COMMENTS ARE LISTED BELOW:
[2019-07-12 15:49] VITALS: BP 123/60
--- NOTE | 2019-07-12 16:24 | NUR ---
BILAT HIPS XRAY OF HIPS DONE. PATIENT IS IN BED APPEAS TO BE RESTING WELL IN BED WITH O2 O AT 2L VIA N/C. NO FURHTER C/O PAIN OR DISCOMFORT AT THIS TIME. WILL CONTINUE TO MONITOR.
--- NOTE | 2019-07-12 18:24 | NUR ---
NO CHANGE IN PATIENT'S CONDITION NOTED. APPEARS TO HAVE RESTED WELL MUCH OF THE AFTERNOON. NO ACUTE DISTRESS NOTED. PATIENT WAS UP OOB AMBULATED IN THE HALLWAYS WITH P.T. TODAY. TOLERATED WELL. WILL ENDORSE TO [facility] NURSE.
--- NOTE | 2019-07-12 18:32 | NUR ---
PATIENT SITTING UP ON THE SIDE OF THE BED. C/O HAVING BILAT HIP PAIN 8/10 ON THE PAIN SCALE. MEDICATED WITH NORCO PO ORDERED.
[2019-07-12 19:33] VITALS: BP 145/65
--- NOTE | 2019-07-12 20:00 | NUR ---
RECEIVED PT IN BED AAOX4 NO RESP DISTRESS NOTED , PT DENY SOB , ON 2L N/C SAT 98% , ON TELE NUMBER 10 THAT SHOWS NSR , HL INTACT FLUSHING WELL, LUNG SOUNDS DIMINISHED , NO RESP DISTRESS NOTED, CALL LGITH WITHIN PT'S REACH , WILL CON'T TO MONITOR AND ASSIST PT WIH CARE .
--- NOTE | 2019-07-13 01:28 | NUR ---
POST LIGIA AND JIAN .. PT'S IN BED WITH EYES CLOSED .
[2019-07-13 05:05] VITALS: BP 126/54
--- NOTE | 2019-07-13 05:14 | NUR ---
I HAVE REVIEWED THE DATA COLLECTION BY RESIDENT SERVICE COORDINATOR (NAME):CHERYL ORTIZ ENTERED ON (DATE/TIME): I CONCUR WITH THE DATA AND ANY EXCEPTIONS OR COMMENTS ARE LISTED BELOW:
--- NOTE | 2019-07-13 06:11 | NUR ---
NORCO PO GIVEN FOR BILAT HIP PAIN , NO RESP DISTRESS NOTED , PT DENY SOB ON 2L N/C . HL INTACT FLUSHING WELL ,TELE NSR , ALL DUE ,MEDS GIVEN NO REACTION NOTED.
[2019-07-13 06:20] LABS: PLATELET COUNT 317 x10^3mcL (130-400); RED CELL DISTRIBUTION WIDTH 14.1 % (11.5-14.5)
[2019-07-13 06:21] LABS: CALCIUM 8.5 mg/dL (8.5-10.1); CARBON DIOXIDE 33.1 mmol/L (21-32); CHLORIDE SERUM 102 mmol/L (98-107); CREATININE SERUM 0.6 mg/dL (0.6-1.0); GFR1 > 60 mL/min; GLUCOSE SERUM 143 mg/dL (74-106); POTASSIUM SERUM 4.6 mmol/L (3.5-5.1); SODIUM SERUM 141 mmol/L (136-145)
[2019-07-13 06:44] LABS: BASOPHIL % 0 % (0-2)
[2019-07-13 07:20] VITALS: BP 135/76
--- NOTE | 2019-07-13 07:21 | NUR ---
RECEIVED REPORT FROM CHERYL MONET, PT IN BED IN NO ACUTE DISTRESS
--- NOTE | 2019-07-13 07:28 | NUR ---
PT IN BED, RESTING IN NO ACUTE DISTRESS, VERBAL, NAURUAN, ABLE TO MAKE NEEDS KNOWN, PERLLA, NO REDNESS/DRAINAGE, RESP EVEN, 2L/MIN, NC, TOLERATED WELL, NO SOB/COUGH, CHEST RISE SYMMETRICALLY, TELE # 10, ABD ROUND AND NON-TENDER TO TOUCH, BS ACTIVE, CAP REFILL < 3S, PALP PULSES. SEE SKIN ASSESSMENT, DENIED PAIN/CP/PRESSURE, DENIED N/V/D, IV PATENT AND FLUSHING WELL, DRESSING CDI, AMBULATORY, CONTINENT, ALL NEEDS ADDRESSED AT THIS TIME, SAFETY PROTOCOL FOLLOWED, CONTINUE TO MONITOR
--- NOTE | 2019-07-13 09:08 | NUR ---
PT REPROTED ANXIETY, MEDICATED PER EMAR PRN, TOLERATED WELL, CONTINUE TO MONITOR
--- NOTE | 2019-07-13 09:42 | NUR ---
AM MED MEDICATED PER EMAR, TOLERATED WELL, EDUCATED R/T ASE GIVEN, VERBALLY UNDERSTANDING, CONTINUE TO MONITOR
[2019-07-13 09:59] VITALS: BP 137/53
[2019-07-13 12:36] VITALS: BP 75/39
--- NOTE | 2019-07-13 13:32 | NUR ---
PT SLEEPING IN BED, IN NO APPARENT DISTRESS, O2 AT 2L/MIN, NC, CONTINUE TO MONITOR
--- NOTE | 2019-07-13 13:58 | NUR ---
PT SEEN BY DR BRITT TODAY, QUESTIONS ASKED AND ANSWERED, NO FURTHER CONCERNS NEEDED WHEN ASKED, POSSIBLE D/C HOME TODAY
[2019-07-13 13:59] VITALS: BP 124/76
--- NOTE | 2019-07-13 15:06 | NUR ---
DC PAPER SIGNED AND KEPT IN CHART, PT AWARE OF NEW PRESCRIPTION IN DC PACKAGE AND IT'S HER RESPONSIBILITY TO F/U W/ PCP AFTER DC HOME, VERBALLY UNDERSTANDING, IV REMOVED, IV CATH TIP INTACT, NO ACTIVE BLEEDING NOTED, TELE #10 REMOVED AND RETURNED TO [facility], QUESTIONS ASKED AND ANSWERED, NO FURTHER CONCERNS NEEDED WHEN ASKED, PT SAID SON WILL P.U AFTER WORK TO PT' HOUSE, PT DC TO HOME, [employer]ADE [employer] EX[employer] NIELSEN ASSISTED TO CHANGE CLOTHES, PT WILL BE ASSISTED TO LOBBY VIA WC BY NURSING STAFFS
== END 2019-07-13 15:43 | disposition home or self-care (01) | DRG 140 ==
LOC: ED 11:38 → DU 14:43
PROVIDERS: ADMIT Internal Medicine
DX: J44.1 Chronic obstructive pulmonary disease with (acute) exacerbation (principal); J96.01 Acute respiratory failure with hypoxia; Z99.81 Dependence on supplemental oxygen; I11.0 Hypertensive heart disease with heart failure; I50.9 Heart failure, unspecified; E11.9 Type 2 diabetes mellitus without complications; I25.2 Old myocardial infarction; Z68.24 Body mass index [BMI] 24.0-24.9, adult; Z87.891 Personal history of nicotine dependence; Z86.718 Personal history of other venous thrombosis and embolism; Z79.84 Long term (current) use of oral hypoglycemic drugs; I25.10 Atherosclerotic heart disease of native coronary artery without angina pectoris; Z88.0 Allergy status to penicillin; Z88.2 Allergy status to sulfonamides; Z88.1 Allergy status to other antibiotic agents; G89.29 Other chronic pain; M54.9 Dorsalgia, unspecified; Z98.51 Tubal ligation status; Z83.3 Family history of diabetes mellitus; Z82.61 Family history of arthritis; Z82.3 Family history of stroke; Z82.49 Family history of ischemic heart disease and other diseases of the circulatory system; Z80.9 Family history of malignant neoplasm, unspecified; J20.9 Acute bronchitis, unspecified
CPT/HCPCS: 36600; 82962; 99406; G0378; J0456; J2920; J2930; J7050; J7613; J7620; J7626; J7644; Q0092

== ENCOUNTER 2019-08-13 09:42 | Emergency (ER) | payer OTHER ==
[~2019-08-13] VITALS: Ht 157.5 cm; Wt 56.7 kg
[2019-08-13 09:45] VITALS: Ht 157.5 cm; Wt 56.7 kg
[2019-08-13 10:13] LABS: CALCIUM 9.1 mg/dL (8.5-10.1); CARBON DIOXIDE 32.5 mmol/L (21-32); CHLORIDE SERUM 100 mmol/L (98-107); CREATININE SERUM 0.6 mg/dL (0.6-1.0); GFR1 > 60 mL/min; GLUCOSE SERUM 103 mg/dL (74-106); POTASSIUM SERUM 4.3 mmol/L (3.5-5.1); SODIUM SERUM 138 mmol/L (136-145)
[2019-08-13 10:18] LABS: ALBUMIN 3.7 g/dL (3.4-5.0); ALKALINE PHOSPHATASE 99 U/L (46-116); ALT/SGPT 29 U/L (14-59); AST/SGOT 20 U/L (15-37); BILIRUBIN TOTAL 0.59 mg/dL (0.20-1.00); TOTAL PROTEIN, SERUM 6.8 g/dL (6.4-8.2)
[2019-08-13 10:35] LABS: BASOPHIL % 0.5 % (0-2); PLATELET COUNT 326 x10^3mcL (130-400); RED CELL DISTRIBUTION WIDTH 13.6 % (11.5-14.5)
[2019-08-13 13:57] VITALS: BP 131/52
== END 2019-08-13 13:57 | disposition home or self-care (01) ==
LOC: ED 09:42
DX: J44.1 Chronic obstructive pulmonary disease with (acute) exacerbation (principal); I10 Essential (primary) hypertension; E11.9 Type 2 diabetes mellitus without complications; Z98.890 Other specified postprocedural states; Z88.0 Allergy status to penicillin; Z88.2 Allergy status to sulfonamides; Z88.1 Allergy status to other antibiotic agents
CPT/HCPCS: 36600; 83880; J2930; J3475; J7613; Q0092

== ENCOUNTER 2019-10-09 16:27 | Inpatient (IN) | payer OTHER ==
[~2019-10-09] VITALS: Ht 154.9 cm; Wt 56.8 kg
[2019-10-09 17:12] LABS: BASOPHIL % 0.4 % (0-2); PLATELET COUNT 340 x10^3mcL (130-400); RED CELL DISTRIBUTION WIDTH 14.7 % (11.5-14.5)
[2019-10-09 17:24] LABS: CALCIUM 8.7 mg/dL (8.5-10.1); CARBON DIOXIDE 34.1 mmol/L (21-32); CHLORIDE SERUM 99 mmol/L (98-107); CREATININE SERUM 0.5 mg/dL (0.6-1.0); GFR1 > 60 mL/min; GLUCOSE SERUM 91 mg/dL (74-106); POTASSIUM SERUM 3.7 mmol/L (3.5-5.1); SODIUM SERUM 135 mmol/L (136-145)
[2019-10-09 17:32] LABS: ALKALINE PHOSPHATASE 77 U/L (46-116); ALT/SGPT 53 U/L (14-59); AST/SGOT 29 U/L (15-37); BILIRUBIN TOTAL 0.52 mg/dL (0.20-1.00); CHOLESTEROL 157 mg/dL (<200); TOTAL PROTEIN, SERUM 6.4 g/dL (6.4-8.2)
[2019-10-09 17:34] LABS: ALBUMIN 3.3 g/dL (3.4-5.0); HDL CHOLESTEROL 65 mg/dL (40-60)
[2019-10-09] MEDS ORDERED: MONTELUKAST SOD10 M1 PO (18:55)
[2019-10-09 19:03] LABS: microscopic required? NO
[2019-10-09 19:09] LABS: urine erythrocyte NEGATIVE (NEGATIVE)
[2019-10-09 20:28] VITALS: BP 155/92
[2019-10-09 20:32] VITALS: Ht 154.9 cm; Wt 56.8 kg
[2019-10-09] MEDS ORDERED: GOOD SENSE ASPI81 M3 PO (20:35)
[2019-10-09] MEDS ORDERED: SINGULAIR10 MG PO (20:36)
[2019-10-09] MEDS ORDERED: NOR5 PO (20:36)
[2019-10-09] MEDS ORDERED: LIPI20 PO (20:36)
[2019-10-09] MEDS ORDERED: XAN1 PO (20:37)
[2019-10-09] MEDS ORDERED: NOR10T PO (20:37)
[2019-10-09] MEDS ORDERED: VENTOLIN H0.09 MG/A1 IH (20:38)
[2019-10-09 21:10] VITALS: BP 150/60
[2019-10-10 06:18] VITALS: BP 153/83
[2019-10-10 08:33] VITALS: BP 138/67
[2019-10-10 12:21] VITALS: BP 140/51
[2019-10-10 17:18] VITALS: BP 128/58
[2019-10-11 06:07] VITALS: BP 135/76
[2019-10-11 07:04] LABS: BASOPHIL % 0.1 % (0-2); PLATELET COUNT 315 x10^3mcL (130-400)
[2019-10-11 07:24] LABS: CALCIUM 9.2 mg/dL (8.5-10.1); CARBON DIOXIDE 30.4 mmol/L (21-32); CHLORIDE SERUM 100 mmol/L (98-107); CREATININE SERUM 0.6 mg/dL (0.6-1.0); GFR1 > 60 mL/min; GLUCOSE SERUM 156 mg/dL (74-106); SODIUM SERUM 137 mmol/L (136-145)
[2019-10-11 07:38] LABS: RED CELL DISTRIBUTION WIDTH 14.8 % (11.5-14.5)
[2019-10-11 08:45] VITALS: BP 147/68
[2019-10-11 12:35] VITALS: BP 124/47
[2019-10-11 17:43] VITALS: BP 133/60
[2019-10-11 21:02] VITALS: BP 106/55
[2019-10-12 04:57] VITALS: BP 105/61
[2019-10-12 06:57] LABS: CALCIUM 8.7 mg/dL (8.5-10.1); CARBON DIOXIDE 35.4 mmol/L (21-32); CHLORIDE SERUM 100 mmol/L (98-107); CREATININE SERUM 0.7 mg/dL (0.6-1.0); GFR1 > 60 mL/min; GLUCOSE SERUM 143 mg/dL (74-106); SODIUM SERUM 141 mmol/L (136-145)
[2019-10-12 06:59] LABS: PLATELET COUNT 330 x10^3mcL (130-400)
[2019-10-12 07:30] LABS: BASOPHIL % 0 % (0-2); RED CELL DISTRIBUTION WIDTH 15.3 % (11.5-14.5)
[2019-10-12 07:54] VITALS: BP 132/61
[2019-10-12 11:38] VITALS: BP 139/52
[2019-10-12 15:39] VITALS: BP 139/61
[2019-10-12 19:40] VITALS: BP 132/54
[2019-10-13 04:18] VITALS: BP 142/64
[2019-10-13 06:06] LABS: CALCIUM 8.3 mg/dL (8.5-10.1); CARBON DIOXIDE 34.5 mmol/L (21-32); CHLORIDE SERUM 101 mmol/L (98-107); CREATININE SERUM 0.6 mg/dL (0.6-1.0); GFR1 > 60 mL/min; GLUCOSE SERUM 142 mg/dL (74-106); POTASSIUM SERUM 4.6 mmol/L (3.5-5.1); SODIUM SERUM 139 mmol/L (136-145)
[2019-10-13 07:03] LABS: BASOPHIL % 0.3 % (0-2); PLATELET COUNT 308 x10^3mcL (130-400); RED CELL DISTRIBUTION WIDTH 15.3 % (11.5-14.5)
[2019-10-13 08:20] VITALS: BP 141/483
[2019-10-13 11:19] VITALS: BP 141/70
[2019-10-13 15:38] VITALS: BP 126/48
[2019-10-13 21:32] VITALS: BP 126/56
[2019-10-14 05:49] VITALS: BP 143/68
[2019-10-14 06:53] LABS: CARBON DIOXIDE 35.3 mmol/L (21-32); CHLORIDE SERUM 98 mmol/L (98-107); CREATININE SERUM 0.7 mg/dL (0.6-1.0); GFR1 > 60 mL/min; GLUCOSE SERUM 134 mg/dL (74-106); POTASSIUM SERUM 5.2 mmol/L (3.5-5.1); SODIUM SERUM 138 mmol/L (136-145)
[2019-10-14 07:12] LABS: BASOPHIL % 0.5 % (0-2); PLATELET COUNT 125 x10^3mcL (130-400); RED CELL DISTRIBUTION WIDTH 15.2 % (11.5-14.5)
[2019-10-14 08:25] VITALS: BP 136/50
[2019-10-14 11:53] VITALS: BP 164/61
[2019-10-14 15:56] VITALS: BP 153/67
[2019-10-14 19:45] VITALS: BP 145/66
[2019-10-15 04:58] VITALS: BP 135/57
[2019-10-15 07:10] LABS: CALCIUM 8.4 mg/dL (8.5-10.1); CARBON DIOXIDE 36.6 mmol/L (21-32); CHLORIDE SERUM 99 mmol/L (98-107); CREATININE SERUM 0.6 mg/dL (0.6-1.0); GFR1 > 60 mL/min; GLUCOSE SERUM 135 mg/dL (74-106); POTASSIUM SERUM 5.3 mmol/L (3.5-5.1); SODIUM SERUM 138 mmol/L (136-145)
[2019-10-15 08:58] VITALS: BP 139/51
[2019-10-15 12:58] VITALS: BP 153/68
[2019-10-15 16:30] VITALS: BP 169/77
[2019-10-15 21:07] VITALS: BP 125/57
[2019-10-16 05:41] VITALS: BP 133/72
[2019-10-16 09:02] VITALS: BP 151/66
[2019-10-16 11:51] VITALS: BP 151/66
[2019-10-16 12:17] VITALS: BP 157/66
== END 2019-10-16 17:09 | disposition home or self-care (01) | DRG 189 ==
LOC: ED 16:27 → DU 18:05 → MU 10-15 14:25
PROVIDERS: Emergency Medicine; Internal Medicine; ADMIT Internal Medicine
DX: J96.21 Acute and chronic respiratory failure with hypoxia (principal); J44.1 Chronic obstructive pulmonary disease with (acute) exacerbation; J44.0 Chronic obstructive pulmonary disease with (acute) lower respiratory infection; J20.9 Acute bronchitis, unspecified; F17.210 Nicotine dependence, cigarettes, uncomplicated; E11.9 Type 2 diabetes mellitus without complications; I10 Essential (primary) hypertension; E87.5 Hyperkalemia; Z99.81 Dependence on supplemental oxygen; Z79.84 Long term (current) use of oral hypoglycemic drugs; Z68.23 Body mass index [BMI] 23.0-23.9, adult
CPT/HCPCS: 82962; 99406; G0378; J0456; J1644; J1815; J2270; J2920; J2930; J7050; J7613; J7620; J7644; Q0092

== ENCOUNTER 2020-05-06 16:17 | Emergency (ER) | payer OTHER ==
[~2020-05-06] VITALS: Ht 154.9 cm; Wt 71.2 kg
[~2020-05-06 16:17] MED LIST changes: +GOOD SENSE ASPI81 M3 PO; +LIPI20 PO; +MONTELUKAST SOD10 M1 PO; +VENTOLIN H0.09 MG/A1 IH
[2020-05-06 16:38] VITALS: Ht 154.9 cm; Wt 71.2 kg
[2020-05-06 17:51] LABS: BASOPHIL % 0.5 % (0-2); PLATELET COUNT 388 x10^3mcL (130-400); RED CELL DISTRIBUTION WIDTH 13.6 % (11.5-14.5)
[2020-05-06 17:55] LABS: CALCIUM 9.1 mg/dL (8.5-10.1); CARBON DIOXIDE 36.6 mmol/L (21-32); CHLORIDE SERUM 100 mmol/L (98-107); CREATININE SERUM 0.8 mg/dL (0.6-1.0); GFR1 > 60 mL/min; GLUCOSE SERUM 119 mg/dL (74-106); POTASSIUM SERUM 4.3 mmol/L (3.5-5.1); SODIUM SERUM 139 mmol/L (136-145)
[2020-05-06 18:00] LABS: ALBUMIN 3.6 g/dL (3.4-5.0); ALKALINE PHOSPHATASE 121 U/L (46-116); ALT/SGPT 20 U/L (14-59); AST/SGOT 17 U/L (15-37); BILIRUBIN TOTAL 0.59 mg/dL (0.20-1.00); TOTAL PROTEIN, SERUM 7.3 g/dL (6.4-8.2)
[2020-05-06 20:22] VITALS: BP 143/77
== END 2020-05-06 20:22 | disposition home or self-care (01) ==
LOC: ED 16:17
PROVIDERS: Emergency Medicine
DX: J44.1 Chronic obstructive pulmonary disease with (acute) exacerbation (principal); E11.9 Type 2 diabetes mellitus without complications; I10 Essential (primary) hypertension
CPT/HCPCS: 83880; J1885; J7512; J7644; Q0092